=== PATIENT | female | born 1960 | race African-American/Black ===

== ENCOUNTER 2019-01-03 16:33 | Inpatient (IN) | payer OTHER ==
[~2019-01-03] VITALS: Ht 165.1 cm; Wt 70.8 kg
[2019-01-03 16:57] LABS: BASOPHILS % (AUTO) 0.6 % (0.0-2.0); EOSINOPHILS % (AUTO) 2.8 % (0.0-6.0); HEMATOCRIT 34 % (33-45); HEMOGLOBIN 11.2 g/dL (11.5-14.8); LYMPHOCYTES # (AUTO) 1.7 /CMM (0.8-4.8); LYMPHOCYTES % (AUTO) 28.4 % (20.0-44.0); MEAN CORPUSCULAR HGB CONC 33 g/dl (31.0-36.0); MEAN CORPUSCULAR VOLUME 96 fL (82-100); MONOCYTES # (AUTO) 0.5 /CMM (0.1-1.30); MONOCYTES % (AUTO) 8.4 % (2.0-12.0); NEUTROPHILS # (AUTO) 3.6 /CMM (1.8-8.9); NEUTROPHILS % (AUTO) 59.8 % (43.0-81.0); PLATELET COUNT (AUTO) 144 /CMM (150-450); RED BLOOD CELL COUNT(AUTO) 3.53 MIL/uL (4.0-5.2); WHITE BLOOD COUNT (AUTO) 5.9 K/uL (4.3-11.0)
[2019-01-03] MEDS ORDERED: LOSA100T31 PO (17:00)
[2019-01-03] MEDS ORDERED: MELO-105 PO (17:00)
[2019-01-03] MEDS ORDERED: PARI1CAP PO (17:00)
[2019-01-03] MEDS ORDERED: [UNRECOGNIZED DRUG - CODE] IJ (17:00)
[2019-01-03] MEDS ORDERED: CALC667T2 PO (17:00)
[2019-01-03] MEDS ORDERED: LABE300T2 PO (17:00)
[2019-01-03] MEDS ORDERED: CLON0.3T PO (17:00)
[2019-01-03] MEDS ORDERED: AMIN960L9 PO (17:00)
[2019-01-03] MEDS ORDERED: FOLI1CAP7 PO (17:00)
[2019-01-03] MEDS ORDERED: CINA30TA2 PO (17:00)
[2019-01-03] MEDS ORDERED: ROPI0.255 PO (17:00)
[2019-01-03] MEDS ORDERED: LEVE1000 PO (17:00)
[2019-01-03] MEDS ORDERED: DIPH50CA37 PO (17:00)
[2019-01-03] MEDS ORDERED: DOCU-141 PO (17:00)
[2019-01-03] MEDS ORDERED: CHOL100040 PO (17:00)
[2019-01-03] MEDS ORDERED: NIFE90TA2 PO (17:00)
[2019-01-03 17:06] LABS: CALCIUM, SERUM 8.9 mg/dL (8.5-10.1); CARBON DIOXIDE 30 mmol/L (21-32); CHLORIDE 94 mmol/L (98-107); CREATININE 3.7 mg/dL (0.6-1.3); GLUCOSE 106 mg/dL (74-106); POTASSIUM 3.1 mmol/L (3.5-5.1); SODIUM SERUM 134 mmol/L (136-145); UREA NITROGEN, BLOOD 21 mg/dL (7-18)
[2019-01-03] MEDS ORDERED: MAG HYDROX/AL HYDROX/SIMETH 30 ML UDC PO PRN (19:00)
[2019-01-03] MEDS ORDERED: ZOLPIDEM TARTRATE 5 MG TABLET PO PRN (19:00)
[2019-01-03] MEDS ORDERED: ONDANSETRON HCL/PF 4 MG/2 ML VIAL IVP PRN (19:00)
[2019-01-03] MEDS ORDERED: CLONIDINE HCL 0.1 MG TABLET PO PRN ×2 (19:00)
[2019-01-03] MEDS ORDERED: NITROGLYCERIN 0.4 MG/TAB BOTTLE SL PRN (19:00)
[2019-01-03] MEDS ORDERED: MAGNESIUM HYDROXIDE 30 ML UDC PO PRN (19:00)
[2019-01-03] MEDS ORDERED: HYDROCODONE/APAP 5/325MG 1 EACH TABLET PO PRN (19:00)
[2019-01-03] MEDS ORDERED: ACETAMINOPHEN 325 MG TABLET PO PRN (19:00)
[2019-01-03] MEDS ORDERED: PARICALCITOL 2 MCG PO SCH (19:00)
[2019-01-03] MEDS ORDERED: MORPHINE SULFATE INJ 2 MG/ML DISP.SYRIN IV PRN (19:00)
[2019-01-03 19:21] LABS: APPEARANCE,URINE Clear (CLEAR); BILIRUBIN,URINE Negative (NEGATIVE); BLOOD, URINE Trace-intact Ery/uL (NEGATIVE); COLOR,URINE Yellow (YELLOW); KETONES,URINE Negative (NEGATIVE); LEUKOCYTE ESTERASE ,URINE Small (NEGATIVE); NITRITE, URINE Negative (NEGATIVE); PH,URINE 7.5 (5.0-8.0); PROTEIN,URINE 100 mg/dl (NEGATIVE); UGLUCOSE Negative (NEGATIVE); UROBILINOGEN,URINE 0.2 EU/dL (0.2)
[2019-01-03] MEDS ORDERED: POTASSIUM CHLORIDE 20 MEQ TAB.PRT.SR PO ONE (19:30)
[2019-01-03 19:35] LABS: BACTERIA,URINE Few /HPF (None Seen); SQUAMOUS EPITHELIAL CELL,UR Few /HPF (None Seen)
[2019-01-03] MEDS: CHOLECALCIFEROL 1,000 UNIT TABLET (VIT D3) PO SCH (21:05)
[2019-01-03] MEDS: diphenhydrAMINE HCL 50 MG CAPSULE PO PRN (21:36)
[2019-01-03] MEDS ORDERED: LORAZEPAM INJ 2 MG/ML VIAL ONE (22:12)
[2019-01-03] MEDS ORDERED: LORAZEPAM INJ 2 MG/ML VIAL IV ONE (22:30)
[2019-01-04] VITALS: BP 163/79
[2019-01-04 04:00] VITALS: BP 160/90
[2019-01-04 06:42] LABS: BASOPHILS % (AUTO) 0.5 % (0.0-2.0); EOSINOPHILS % (AUTO) 4.2 % (0.0-6.0); HEMATOCRIT 34 % (33-45); HEMOGLOBIN 11.3 g/dL (11.5-14.8); LYMPHOCYTES # (AUTO) 1.6 /CMM (0.8-4.8); LYMPHOCYTES % (AUTO) 41.3 % (20.0-44.0); MEAN CORPUSCULAR HGB CONC 33 g/dl (31.0-36.0); MEAN CORPUSCULAR VOLUME 95 fL (82-100); MONOCYTES # (AUTO) 0.4 /CMM (0.1-1.30); MONOCYTES % (AUTO) 10.9 % (2.0-12.0); NEUTROPHILS # (AUTO) 1.7 /CMM (1.8-8.9); NEUTROPHILS % (AUTO) 43.1 % (43.0-81.0); PLATELET COUNT (AUTO) 131 /CMM (150-450); RED BLOOD CELL COUNT(AUTO) 3.57 MIL/uL (4.0-5.2); WHITE BLOOD COUNT (AUTO) 3.9 K/uL (4.3-11.0)
[2019-01-04 06:55] LABS: ALBUMIN 3.4 g/dL (3.4-5.0); BILIRUBIN,TOTAL 0.4 mg/dL (0.2-1.0); CALCIUM, SERUM 8.7 mg/dL (8.5-10.1); CREATININE 5.1 mg/dL (0.6-1.3); MAGNESIUM 2.1 mg/dL (1.8-2.4); PHOSPHORUS 5.4 mg/dL (2.5-4.9); POTASSIUM 4.1 mmol/L (3.5-5.1); TOTAL PROTEIN, SERUM 7.4 g/dL (6.4-8.2)
[2019-01-04 07:13] LABS: THYROID STIMULATING HORMONE 3.262 uIU/mL (0.358-3.74)
[2019-01-04 08:00] VITALS: BP 145/83
[2019-01-04] MEDS ORDERED: ASPIRIN 81 MG TAB.CHEW PO SCH (09:00)
[2019-01-04] MEDS ORDERED: LORAZEPAM 1 MG TABLET PO PRN (09:00)
[2019-01-04] MEDS ORDERED: NIFEdipine (10MG) 10 MG CAPSULE PO SCH (09:00)
[2019-01-04] MEDS: diphenhydrAMINE HCL 50 MG CAPSULE PO PRN ×2 (09:23→20:04)
[2019-01-04] MEDS: ropiniROLE 0.5 MG TABLET PO SCH (09:23)
[2019-01-04] MEDS: CINACALCET HCL 30 MG TABLET PO SCH (09:24)
[2019-01-04] MEDS: CALCIUM ACETATE 667 MG TABLET PO SCH ×3 (09:24→17:00)
[2019-01-04] MEDS: LEVETIRACETAM (250 MG) 250 MG TABLET PO SCH (09:26)
[2019-01-04] MEDS: LOSARTAN POTASSIUM 50 MG TABLET PO SCH (09:26)
[2019-01-04] MEDS: VIT B CMPLX 3/FA/VIT C/BIOTIN 1 TAB TABLET PO SCH (09:26)
[2019-01-04] MEDS: DOCUSATE SODIUM 100 MG CAPSULE PO SCH (09:26)
[2019-01-04] MEDS: LABETALOL HCL (100MG) 100 MG TABLET PO SCH ×3 (09:27→17:00)
[2019-01-04] MEDS: NICOTINE PATCH (14MG) 14 MG PATCH.TD24 TD SCH (09:27)
[2019-01-04] MEDS: CHOLECALCIFEROL 1,000 UNIT TABLET (VIT D3) PO SCH (09:27)
[2019-01-04] MEDS: MELOXICAM 7.5 MG TABLET PO SCH (09:28)
[2019-01-04] MEDS: NIFEdipine XL (30MG) 30 MG TAB PO SCH ×2 (09:28→17:00)
[2019-01-04] MEDS: PANTOPRAZOLE 40 MG TABLET.DR PO SCH (09:30)
[2019-01-04] MEDS ORDERED: IV NS 0.9% 250 ML IV ONE (11:10)
[2019-01-04] MEDS ORDERED: IOHEXOL-350 100 ML VIAL IV ONE ×2 (11:10→11:56)
[2019-01-04] MEDS ORDERED: CT SWABBABLE VALVE TRANS SET 1 EA INFUS.SET MC ONE (11:10)
[2019-01-04] MEDS ORDERED: METOPROLOL TARTRATE INJ 5 MG/5 ML AMPUL ONE (11:22)
[2019-01-04] MEDS: METOPROLOL TARTRATE INJ 5 MG/5 ML AMPUL IVP PRN ×3 (11:28→11:38)
[2019-01-04] MEDS ORDERED: NITROGLYCERIN 0.4 MG/TAB BOTTLE SL ONE ×2 (11:30→12:30)
[2019-01-04 16:00] VITALS: BP 105/61
[2019-01-04 20:00] VITALS: BP 106/76
[2019-01-05 06:30] LABS: BASOPHILS % (AUTO) 0.5 % (0.0-2.0); EOSINOPHILS % (AUTO) 3.6 % (0.0-6.0); HEMATOCRIT 34 % (33-45); HEMOGLOBIN 11.2 g/dL (11.5-14.8); LYMPHOCYTES # (AUTO) 1.2 /CMM (0.8-4.8); LYMPHOCYTES % (AUTO) 25.8 % (20.0-44.0); MEAN CORPUSCULAR HGB CONC 33 g/dl (31.0-36.0); MEAN CORPUSCULAR VOLUME 96 fL (82-100); MONOCYTES # (AUTO) 0.4 /CMM (0.1-1.30); MONOCYTES % (AUTO) 9.1 % (2.0-12.0); NEUTROPHILS # (AUTO) 2.9 /CMM (1.8-8.9); PLATELET COUNT (AUTO) 137 /CMM (150-450); RED BLOOD CELL COUNT(AUTO) 3.52 MIL/uL (4.0-5.2); WHITE BLOOD COUNT (AUTO) 4.8 K/uL (4.3-11.0)
[2019-01-05 06:56] LABS: CALCIUM, SERUM 7.9 mg/dL (8.5-10.1); CREATININE 4.9 mg/dL (0.6-1.3); MAGNESIUM 2.1 mg/dL (1.8-2.4); PHOSPHORUS 5.5 mg/dL (2.5-4.9); POTASSIUM 4.7 mmol/L (3.5-5.1)
[2019-01-05 08:00] VITALS: BP 128/68
[2019-01-05] MEDS: DOCUSATE SODIUM 100 MG CAPSULE PO SCH (08:43)
[2019-01-05] MEDS: PANTOPRAZOLE 40 MG TABLET.DR PO SCH (08:43)
[2019-01-05] MEDS: LEVETIRACETAM (250 MG) 250 MG TABLET PO SCH (08:44)
[2019-01-05] MEDS: CINACALCET HCL 30 MG TABLET PO SCH (08:45)
[2019-01-05] MEDS: VIT B CMPLX 3/FA/VIT C/BIOTIN 1 TAB TABLET PO SCH (08:46)
[2019-01-05] MEDS: CALCIUM ACETATE 667 MG TABLET PO SCH ×3 (08:46→17:37)
[2019-01-05] MEDS: ropiniROLE 0.5 MG TABLET PO SCH (08:46)
[2019-01-05] MEDS: CHOLECALCIFEROL 1,000 UNIT TABLET (VIT D3) PO SCH (08:47)
[2019-01-05] MEDS: LABETALOL HCL (100MG) 100 MG TABLET PO SCH ×3 (08:50→17:38)
[2019-01-05] MEDS: NIFEdipine XL (30MG) 30 MG TAB PO SCH ×2 (08:51→17:38)
[2019-01-05] MEDS: MELOXICAM 7.5 MG TABLET PO SCH (08:55)
[2019-01-05] MEDS: NICOTINE PATCH (14MG) 14 MG PATCH.TD24 TD SCH (08:58)
[2019-01-05] MEDS: LOSARTAN POTASSIUM 50 MG TABLET PO SCH (10:25)
[2019-01-05 16:00] VITALS: BP_DIAS 83
[2019-01-05 20:00] VITALS: BP 160/82
[2019-01-05 21:51] VITALS: BP 131/43
[2019-01-05 21:53] VITALS: BP 160/82
[2019-01-06 07:03] LABS: BASOPHILS % (AUTO) 0.4 % (0.0-2.0); EOSINOPHILS % (AUTO) 4.6 % (0.0-6.0); HEMATOCRIT 37 % (33-45); HEMOGLOBIN 11.9 g/dL (11.5-14.8); LYMPHOCYTES # (AUTO) 1.3 /CMM (0.8-4.8); LYMPHOCYTES % (AUTO) 26.3 % (20.0-44.0); MEAN CORPUSCULAR HGB CONC 33 g/dl (31.0-36.0); MEAN CORPUSCULAR VOLUME 97 fL (82-100); MONOCYTES # (AUTO) 0.4 /CMM (0.1-1.30); MONOCYTES % (AUTO) 8.5 % (2.0-12.0); NEUTROPHILS # (AUTO) 3.1 /CMM (1.8-8.9); NEUTROPHILS % (AUTO) 60.2 % (43.0-81.0); PLATELET COUNT (AUTO) 128 /CMM (150-450); RED BLOOD CELL COUNT(AUTO) 3.78 MIL/uL (4.0-5.2); WHITE BLOOD COUNT (AUTO) 5.1 K/uL (4.3-11.0)
[2019-01-06 07:23] LABS: CALCIUM, SERUM 8.8 mg/dL (8.5-10.1); CREATININE 4.8 mg/dL (0.6-1.3); PHOSPHORUS 3.9 mg/dL (2.5-4.9); POTASSIUM 4.2 mmol/L (3.5-5.1)
[2019-01-06] MEDS: PANTOPRAZOLE 40 MG TABLET.DR PO SCH (07:58)
[2019-01-06 08:00] VITALS: BP 143/74
[2019-01-06] MEDS: LABETALOL HCL (100MG) 100 MG TABLET PO SCH (08:38)
[2019-01-06] MEDS: LOSARTAN POTASSIUM 50 MG TABLET PO SCH (08:38)
[2019-01-06] MEDS: CHOLECALCIFEROL 1,000 UNIT TABLET (VIT D3) PO SCH (08:38)
[2019-01-06] MEDS: CINACALCET HCL 30 MG TABLET PO SCH (08:38)
[2019-01-06] MEDS: LEVETIRACETAM (250 MG) 250 MG TABLET PO SCH (08:39)
[2019-01-06] MEDS: VIT B CMPLX 3/FA/VIT C/BIOTIN 1 TAB TABLET PO SCH (08:39)
[2019-01-06] MEDS: CALCIUM ACETATE 667 MG TABLET PO SCH (08:39)
[2019-01-06] MEDS: DOCUSATE SODIUM 100 MG CAPSULE PO SCH (08:39)
[2019-01-06 08:43] VITALS: BP 143/74
[2019-01-06] MEDS: NIFEdipine XL (30MG) 30 MG TAB PO SCH (08:43)
[2019-01-06] MEDS: MELOXICAM 7.5 MG TABLET PO SCH (08:43)
[2019-01-06] MEDS: NICOTINE PATCH (14MG) 14 MG PATCH.TD24 TD SCH (08:43)
[2019-01-06] MEDS: ropiniROLE 0.5 MG TABLET PO SCH (08:44)
== END 2019-01-06 12:00 | disposition home or self-care (01) | DRG 198 ==
LOC: ER 16:36 → TELE 18:28 → MED 01-04 10:17
PROVIDERS: ADMIT Nurse Practitioner Acute Care; ATTEND Nurse Practitioner Acute Care
PROC: 5A1D70Z Performance of Urinary Filtration, Intermittent, Less than 6 Hours Per Day (ICD-10-PCS; principal; 2019-01-04)
DX: I25.10 Atherosclerotic heart disease of native coronary artery without angina pectoris (principal); D68.59 Other primary thrombophilia; I12.0 Hypertensive chronic kidney disease with stage 5 chronic kidney disease or end stage renal disease; D69.6 Thrombocytopenia, unspecified; E87.1 Hypo-osmolality and hyponatremia; N18.6 End stage renal disease; G40.909 Epilepsy, unspecified, not intractable, without status epilepticus; E87.6 Hypokalemia; Z99.2 Dependence on renal dialysis; D64.9 Anemia, unspecified; M12.9 Arthropathy, unspecified; Z88.8 Allergy status to other drugs, medicaments and biological substances; Z79.899 Other long term (current) drug therapy; F19.10 Other psychoactive substance abuse, uncomplicated; Z74.09 Other reduced mobility
CPT/HCPCS: 36415; 71045-TC; 75574; 80048-TC; 80053-TC; 80061-TC; 80305; 81000-TC; 83735-TC; 84100-TC; 84443-TC; 84484-TC; 85025-TC; 85610-TC; 86706; 87081-TC; 87086-TC; 87340; 90935-TC; G0378; J2060; J2270; J3490; J7050; Q0163; Q9967

== ENCOUNTER 2019-08-22 18:09 | Emergency (ER) | payer OTHER ==
[~2019-08-22] VITALS: Ht 167.6 cm; Wt 63.5 kg
[~2019-08-22 18:09] MED LIST: AMIN960L9 PO; CALC667T2 PO; CHOL100040 PO; CINA30TA2 PO; CLON0.3T PO; DIPH50CA37 PO; DOCU-141 PO; FOLI1CAP7 PO; LABE300T2 PO; LEVE1000 PO; LOSA100T31 PO; MELO-105 PO; NIFE90TA2 PO; PARI1CAP PO; ROPI0.255 PO; [UNRECOGNIZED DRUG - CODE] IJ
--- NOTE | 2019-08-22 18:20 | NUR ---
[email or web address] from dialysis center for noted seizure. versed 5mg im given architectural project captain, bg 98 architectural project captain. Patient a/ox1, still post ictal, responsive to tactile stimuli. Attached to the air sampling and monitoring. No distress noted.
[2019-08-22] MEDS ORDERED: LEVETIRACETAM (500MG) 500 MG in IV NS 0.9% 100 ML IV ONE (18:30)
[2019-08-22 18:41] LABS: BASOPHILS % (AUTO) 0.6 % (0.0-2.0); EOSINOPHILS % (AUTO) 3.7 % (0.0-6.0); HEMATOCRIT 30 % (33-45); HEMOGLOBIN 9.9 g/dL (11.5-14.8); LYMPHOCYTES % (AUTO) 31.8 % (20.0-44.0); MEAN CORPUSCULAR HGB CONC 33 g/dl (31.0-36.0); MEAN CORPUSCULAR VOLUME 98 fL (82-100); MONOCYTES # (AUTO) 0.3 /CMM (0.1-1.30); MONOCYTES % (AUTO) 9.1 % (2.0-12.0); NEUTROPHILS # (AUTO) 1.8 /CMM (1.8-8.9); NEUTROPHILS % (AUTO) 54.8 % (43.0-81.0); PLATELET COUNT (AUTO) 109 /CMM (150-450); RED BLOOD CELL COUNT(AUTO) 3.01 MIL/uL (4.0-5.2); WHITE BLOOD COUNT (AUTO) 3.2 K/uL (4.3-11.0)
--- NOTE | 2019-08-22 18:45 | NUR ---
Iv line established on left ac g20, blood drawn and sent to lab.
[2019-08-22 18:49] LABS: CALCIUM, SERUM 8.5 mg/dL (8.5-10.1); CREATININE 4.7 mg/dL (0.6-1.3); POTASSIUM 3.6 mmol/L (3.5-5.1)
[2019-08-22 18:55] LABS: ALBUMIN 3.3 g/dL (3.4-5.0); BILIRUBIN,DIRECT 0.1 mg/dL (0.0-0.2); BILIRUBIN,TOTAL 0.3 mg/dL (0.2-1.0); TOTAL PROTEIN, SERUM 6.7 g/dL (6.4-8.2)
--- NOTE | 2019-08-22 18:55 | NUR ---
taken to ct.
--- NOTE | 2019-08-22 19:20 | NUR ---
ENDORSED TO CORNEL WALTER
--- NOTE | 2019-08-22 19:27 | NUR ---
pt remains in gurney, lethargic, opens eyes to name call, vitals stable
[2019-08-22 21:06] VITALS: BP 132/73
--- NOTE | 2019-08-22 21:06 | NUR ---
Patient discharged to home in stable condition. Written and verbal after care instructions given. Patient verbalizes understanding of instruction.
== END 2019-08-22 22:48 | disposition home or self-care (01) ==
LOC: ER 18:13
DX: G40.909 Epilepsy, unspecified, not intractable, without status epilepticus (principal); I25.10 Atherosclerotic heart disease of native coronary artery without angina pectoris; I12.0 Hypertensive chronic kidney disease with stage 5 chronic kidney disease or end stage renal disease; N18.6 End stage renal disease; Z99.2 Dependence on renal dialysis; Z88.6 Allergy status to analgesic agent; Z60.2 Problems related to living alone; Z79.899 Other long term (current) drug therapy
CPT/HCPCS: 36415; 70450; 80048; 80076; 85025; 96365; 99284; J1953; J7030

== ENCOUNTER 2019-10-31 18:42 | Inpatient (IN) | payer OTHER ==
[~2019-10-31] VITALS: Ht 160 cm; Wt 61.7 kg
[2019-10-31] MEDS ORDERED: NITROGLYCERIN 0.4 MG/TAB BOTTLE SL ONE (19:00)
[2019-10-31 19:07] LABS: BASOPHILS % (AUTO) 0.5 % (0.0-2.0); EOSINOPHILS % (AUTO) 2.3 % (0.0-6.0); HEMATOCRIT 30 % (33-45); LYMPHOCYTES # (AUTO) 1.3 /CMM (0.8-4.8); LYMPHOCYTES % (AUTO) 22.8 % (20.0-44.0); MEAN CORPUSCULAR HGB CONC 33 g/dl (31.0-36.0); MEAN CORPUSCULAR VOLUME 99 fL (82-100); MONOCYTES # (AUTO) 0.4 /CMM (0.1-1.30); MONOCYTES % (AUTO) 7.5 % (2.0-12.0); NEUTROPHILS # (AUTO) 3.8 /CMM (1.8-8.9); NEUTROPHILS % (AUTO) 66.9 % (43.0-81.0); PLATELET COUNT (AUTO) 169 /CMM (150-450); RED BLOOD CELL COUNT(AUTO) 3.08 MIL/uL (4.0-5.2); WHITE BLOOD COUNT (AUTO) 5.8 K/uL (4.3-11.0)
--- NOTE | 2019-10-31 19:09 | NUR ---
ANIBAL FROM HD CENTER TO ER BED 7. AAOX4. NOT IN RESP DISTRESS, BRAETHING EVEN AND UNLABORED. AMBULATORY W/ ASSIST, BASELINE FWW USER. BROUGHT IN FOR C/O MID STERNAL CHEST PAIN STARTED AFTER HAVING HD. PT RATED HER PAIN 10/10 WHEN IT STARTED, EMS GAVE HER 2 SPRAY OF NITRO VERIFICATION LEAD AND BROUGHT DOWN THE PAIN TO 6/10. PT IS PLACED ON MONITOR. MD WAS AT THE BEDSIDE FOR EVAL. ORDERS RECEIVED NOTED AND CARRIED OUT.
[2019-10-31 19:15] LABS: CALCIUM, SERUM 9.6 mg/dL (8.5-10.1); POTASSIUM 3.2 mmol/L (3.5-5.1)
[2019-10-31] MEDS ORDERED: NITROGLYCERIN 0.4 MG/TAB BOTTLE ONE (19:15)
--- NOTE | 2019-10-31 19:27 | NUR ---
2ND DOSE NITROSTAT 0.4MG SL GIVEN. PAINIS RATE 07/21 BP: 154/91 HR: 77
--- NOTE | 2019-10-31 19:40 | NUR ---
pt provided with food
--- NOTE | 2019-10-31 20:38 | NUR ---
COVID SWAB COLLECTED AND SENT TO LAB
--- NOTE | 2019-10-31 20:57 | NUR ---
CALLED [facility], PAGED NORIS
--- NOTE | 2019-10-31 21:47 | NUR ---
REPORT GIVEN TO NICK
[2019-10-31 21:50] VITALS: BP 146/92
--- NOTE | 2019-10-31 21:56 | NUR ---
pt transported to unit on [facility] with emt and rn at bedside w/ acls protocol. nad noted during transport. pt ambulated from rney to bed with min assist.
[2019-10-31 22:00] VITALS: BP_SYST 143; BP_SYST 146; BP_DIAS 88; BP_DIAS 92
[2019-10-31] MEDS ORDERED: PARICALCITOL 2 MCG PO SCH (22:00)
[2019-10-31] MEDS ORDERED: ZOLPIDEM TARTRATE 5 MG TABLET PO PRN (22:00)
[2019-10-31] MEDS ORDERED: ONDANSETRON HCL/PF 4 MG/2 ML VIAL IVP PRN (22:00)
[2019-10-31] MEDS ORDERED: [UNRECOGNIZED DRUG - OTHER] IJ SCH (22:00)
[2019-10-31] MEDS ORDERED: MAGNESIUM HYDROXIDE 30 ML UDC PO PRN (22:00)
[2019-10-31] MEDS ORDERED: Z GUARD REMEDY 2 OZ OINT TP PRN (22:00)
[2019-10-31] MEDS ORDERED: ACETAMINOPHEN 325 MG TABLET PO PRN (22:00)
[2019-10-31] MEDS ORDERED: CLONIDINE HCL 0.1 MG TABLET PO PRN (22:00)
[2019-10-31] MEDS ORDERED: MAG HYDROX/AL HYDROX/SIMETH 30 ML UDC PO PRN (22:00)
[2019-10-31] MEDS: HYDROCODONE/APAP 5/325MG TABLET PO PRN (22:27)
[2019-10-31] MEDS ORDERED: POTASSIUM CHLORIDE 20 MEQ TAB.PRT.SR PO ONE (22:30)
[2019-11-01] VITALS (7 sets, daily range): BP systolic 111–146; BP diastolic 61–92
--- NOTE | 2019-11-01 01:44 | NUR ---
RN notes Admitted a 59 year old female from ER via stretcher with diagnosis of chest pain, troponin slightly elevated 0.068. On room air well tolerated with 02sat of 99 -100%. Complaining of leg cramps and pain, seen and examined by Dr. Quinteros. [place] given with slight relief. Hot packs provided with help. Vital signs wnl. No complaint of chest pain as of this time. Needs attended. Kept clean and dry. Will continue to monitor.
--- NOTE | 2019-11-01 06:41 | NUR ---
RN notes Spoke with Dr. Quinteros regarding DVT pump or Chemical prophylaxis for the patient. No to DVT pump for now as patient is complaining of severe cramps and waiting for Dr. Trevizo to see patient before ordering any chemical prophylaxis.
--- NOTE | 2019-11-01 07:30 | NUR ---
RN Opening Received patient in bed, AO x 3-4, able to responds all stimuli. C/O both feet cramping and provided warm pack applied, respiratory even, unlabored on room air. Skin is warm to touch, keep clean/dry, intact IV site. Keep bed in locked with elevated HOB and lower position of the bed for ensure airway, and aspiration precaution. Call light within reach, will continue to monitor.
[2019-11-01 08:20] LABS: BASOPHILS % (AUTO) 0.4 % (0.0-2.0); EOSINOPHILS % (AUTO) 3.3 % (0.0-6.0); HEMATOCRIT 32 % (33-45); HEMOGLOBIN 10.6 g/dL (11.5-14.8); LYMPHOCYTES # (AUTO) 1.1 /CMM (0.8-4.8); LYMPHOCYTES % (AUTO) 24.4 % (20.0-44.0); MEAN CORPUSCULAR HGB CONC 33 g/dl (31.0-36.0); MEAN CORPUSCULAR VOLUME 99 fL (82-100); MONOCYTES # (AUTO) 0.5 /CMM (0.1-1.30); MONOCYTES % (AUTO) 9.9 % (2.0-12.0); NEUTROPHILS # (AUTO) 2.9 /CMM (1.8-8.9); PLATELET COUNT (AUTO) 171 /CMM (150-450); RED BLOOD CELL COUNT(AUTO) 3.25 MIL/uL (4.0-5.2); WHITE BLOOD COUNT (AUTO) 4.7 K/uL (4.3-11.0)
[2019-11-01 08:30] LABS: CALCIUM, SERUM 9.6 mg/dL (8.5-10.1); CREATININE 6.7 mg/dL (0.6-1.3); MAGNESIUM 2.4 mg/dL (1.8-2.4); PHOSPHORUS 6.1 mg/dL (2.5-4.9); POTASSIUM 4.7 mmol/L (3.5-5.1)
[2019-11-01] MEDS: CINACALCET HCL 30 MG TABLET PO SCH (08:44)
[2019-11-01] MEDS: CALCIUM ACETATE 667 MG TABLET PO SCH ×3 (08:44→17:56)
[2019-11-01] MEDS: CHOLECALCIFEROL 1,000 UNIT TABLET (VIT D3) PO SCH (08:44)
[2019-11-01] MEDS: VIT B CMPLX 3/FA/VIT C/BIOTIN 1 TAB TABLET PO SCH (08:44)
[2019-11-01] MEDS: NIFEdipine XL (30MG) 30 MG TAB PO SCH ×2 (08:45→17:00)
[2019-11-01] MEDS: DOCUSATE SODIUM 100 MG CAPSULE PO SCH (08:45)
[2019-11-01] MEDS: LOSARTAN POTASSIUM 50 MG TABLET PO SCH (08:46)
[2019-11-01] MEDS: LEVETIRACETAM (250 MG) 250 MG TABLET PO SCH (08:46)
[2019-11-01] MEDS: ropiniROLE 0.5 MG TABLET PO SCH (08:47)
[2019-11-01] MEDS: MELOXICAM 7.5 MG TABLET PO SCH (08:47)
[2019-11-01] MEDS: HEPARIN SODIUM, PORCINE 5000 UNITS/1 ML VIAL SQ SCH ×2 (08:47→21:25)
[2019-11-01] MEDS ORDERED: PROSOURCE / PROSTAT (PYXIS) 30 ML UDC PO SCH (09:00)
[2019-11-01] MEDS ORDERED: LABETALOL HCL 300 MG TABLET PO SCH (09:00)
--- NOTE | 2019-11-01 09:00 | NUR ---
Obtained sign of consent for CTA.
--- NOTE | 2019-11-01 09:30 | NUR ---
Patient went to CTA unable to take Labetalol at this time.
[2019-11-01] MEDS: HYDROCODONE/APAP 5/325MG TABLET PO PRN ×2 (09:50→21:23)
[2019-11-01] MEDS ORDERED: IOHEXOL-350 100 ML VIAL IV ONE (09:58)
[2019-11-01] MEDS ORDERED: IV NS 0.9% 250 ML IV ONE (09:58)
--- NOTE | 2019-11-01 10:16 | NUR ---
Patient left to CTA accompanied by staff with w/c.
[2019-11-01] MEDS ORDERED: IV NS 0.9% 500 ML IV PRN (11:00)
[2019-11-01] MEDS ORDERED: METOPROLOL TARTRATE INJ 5 MG/5 ML AMPUL IVP ONE (11:00)
[2019-11-01] MEDS ORDERED: NITROGLYCERIN 4.9 GM SPRAY SL ONE (11:00)
[2019-11-01] MEDS ORDERED: IV NS 0.9% 500 ML IV SCH (11:00)
[2019-11-01] MEDS ORDERED: METOPROLOL TARTRATE INJ 5 MG/5 ML AMPUL ONE (11:49)
[2019-11-01] MEDS ORDERED: LABETALOL HCL (100MG) 100 MG TABLET PO SCH ×2 (13:00→13:08)
--- NOTE | 2019-11-01 13:20 | NUR ---
Patient obtained new IV site on left AC 18g, informed CT that pt is ready for CTA.
[2019-11-01] MEDS: LABETALOL HCL (100MG) 100 MG TABLET PO SCH ×2 (14:46→17:00)
--- NOTE | 2019-11-01 17:58 | NUR ---
Patient going have HD today, will hold bp meds at this time.
--- NOTE | 2019-11-01 18:53 | NUR ---
RN Closing note Patient in bed sleeping comfortably, does no appears pain or distress, respiratory even and unlabored on room air O2sat 98%. Skin is warm to touch kept clean/dry, intact new midline site. Patient still waiting CTA, called CT/ext [phone] but no one answer the phone. Keep bed in locked with elevated HOB for ensure airway and elevated HOB. Call light within reach, will endorse shift commander.
[2019-11-01] MEDS: ATORVASTATIN 10 MG TABLET PO SCH (21:23)
[2019-11-01] MEDS: diphenhydrAMINE HCL 50 MG CAPSULE PO PRN (22:58)
[2019-11-02 00:10] VITALS: BP 114/66
[2019-11-02] MEDS: HYDROCODONE/APAP 5/325MG TABLET PO PRN ×2 (02:44→21:14)
[2019-11-02 04:22] VITALS: BP 139/65
--- NOTE | 2019-11-02 06:41 | NUR ---
MARINE EQUIPMENT ENGINEER NOTES AWAKE & RESPONSIVE. NOT IN ANY DISTRESS. NO SOB NOTED. DENIES ANY PAIN OR DISCOMFORT AT THIS TIME. ON TELE SB @ 58 WITH IV-ML PATENT & INTACT. AM CARE DONE. MONITORED ACCORDINGLY. CALL LIGHT WITHIN REACH. BED IN LOWEST POSITION. SR UP X 3 WITH BED ALARM ON FOR SAFETY. WILL ENDORSE TO NEXT SHIFT.
--- NOTE | 2019-11-02 07:40 | NUR ---
RN Opening Received patient in bed, going have CTA this morning. Denies chest pain but c/o itchiness on left ear. Skin is warm to touch, keep clean.dry, intact midline and portacath. respiratory hellen and unlabored on room air, no distress observed. Transporter picked up patient to CTA, stable vital sign:bp-139/76, p-53, r-18, t-98.5, E3hvs-272%. Will continue to monitor.
[2019-11-02] MEDS ORDERED: METOPROLOL TARTRATE INJ 5 MG/5 ML AMPUL ONE (07:51)
[2019-11-02] MEDS ORDERED: NITROGLYCERIN 0.4 MG/TAB BOTTLE ONE (07:51)
[2019-11-02] MEDS ORDERED: IV NS 0.9% 250 ML IV ONE (07:52)
[2019-11-02] MEDS ORDERED: IOHEXOL-350 100 ML VIAL IV ONE (07:52)
[2019-11-02 08:00] VITALS: BP 139/76
[2019-11-02] MEDS ORDERED: IV NS 0.9% 500 ML IV PRN (08:00)
[2019-11-02] MEDS ORDERED: METOPROLOL TARTRATE INJ 5 MG/5 ML AMPUL IVP PRN (08:00)
[2019-11-02] MEDS ORDERED: NITROGLYCERIN 4.9 GM SPRAY SL PRN (08:00)
--- NOTE | 2019-11-02 08:08 | NUR ---
in for CTA heart, AOx4; no Metoprolol given, NTG 0.4 mg/SL given prior to CTA; CTA Heart completed, denies CP SOB ; VS stable at completion of test. Report given to JOSE ANGEL Luque
--- NOTE | 2019-11-02 08:30 | NUR ---
Patient montesinos from CTA, vital sign: bp-154/76, p-57, r-18, O2sat- 99%, t-98.6, in stable condition.
[2019-11-02] MEDS: CALCIUM ACETATE 667 MG TABLET PO SCH ×3 (08:54→17:28)
[2019-11-02] MEDS: CINACALCET HCL 30 MG TABLET PO SCH (08:54)
[2019-11-02] MEDS: ropiniROLE 0.5 MG TABLET PO SCH (08:54)
[2019-11-02] MEDS: CHOLECALCIFEROL 1,000 UNIT TABLET (VIT D3) PO SCH (08:54)
[2019-11-02] MEDS: DOCUSATE SODIUM 100 MG CAPSULE PO SCH (08:54)
[2019-11-02] MEDS: VIT B CMPLX 3/FA/VIT C/BIOTIN 1 TAB TABLET PO SCH (08:54)
[2019-11-02] MEDS: LEVETIRACETAM (250 MG) 250 MG TABLET PO SCH (08:55)
[2019-11-02] MEDS: HEPARIN SODIUM, PORCINE 5000 UNITS/1 ML VIAL SQ SCH ×2 (08:56→21:21)
[2019-11-02] MEDS: NIFEdipine XL (30MG) 30 MG TAB PO SCH ×2 (09:00→16:43)
[2019-11-02] MEDS: LABETALOL HCL (100MG) 100 MG TABLET PO SCH ×3 (09:00→16:44)
[2019-11-02] MEDS: MELOXICAM 7.5 MG TABLET PO SCH (09:03)
[2019-11-02] MEDS: LOSARTAN POTASSIUM 50 MG TABLET PO SCH (09:07)
[2019-11-02] MEDS: PROSOURCE / PROSTAT (PYXIS) 30 ML UDC PO SCH (09:13)
--- NOTE | 2019-11-02 09:20 | NUR ---
Patient going HD will hold BP meds, HR 57 at this time.
[2019-11-02] MEDS: diphenhydrAMINE HCL 50 MG CAPSULE PO PRN (14:04)
[2019-11-02] MEDS ORDERED: diphenhydrAMINE HCL 50 MG CAPSULE PO PRN (14:57)
[2019-11-02 16:00] VITALS: BP 148/77
--- NOTE | 2019-11-02 16:44 | NUR ---
Pt is on HD, will hold bp meds, HR 54.
--- NOTE | 2019-11-02 18:33 | NUR ---
RN Closing note Patient in bed, finished hemodialysis out put 1000 ml. Pt denies fatigue or distress after after HD, skin is warm to touch, keep clean/dry, intact mid line and portacath. Respiratory even and unlabored on room air. Keep bed in locked with elevated HOB for ensure airway and aspiration precaution. Call light within reach, will endorse car shifter. Unable to document out put on intervention
--- NOTE | 2019-11-02 19:16 | NUR ---
MS RN: RECEIVED PATIENT Patient in bed, awake. On room air, denies shortness of breath. Right chest Perma cath intact, had dialysis treatment today per JOSE ANGEL Rouse. Midline IDA intact. Report pain in her left ear, no swelling, no redness noted. Fall precaution maintained.
[2019-11-02 20:10] VITALS: BP 135/92
[2019-11-02 20:15] VITALS: BP 135/92
--- NOTE | 2019-11-02 20:42 | NUR ---
AGITATION Patient sitting up in bed, due meds Heparin injection and Lipitor present to patient, explaining indication and possible side effect to patient, suddenly became agitated. Pacing inside the room and scream to nurse. States she wants to leave hosp. Educate patient the importance of staying in the hosp risk and benefit of leaving against medical advice, patient declined education. Yells out to nurse to leave her alone. Informed MaryRN/Charge nurse. Called sun Rascon. Appreciate the call, per sun Rascon patient has periodic attitude at home. Patient "walked out" too from other hosp per daughterTarah. Will monitor.
[2019-11-02] MEDS: ATORVASTATIN 10 MG TABLET PO SCH (21:13)
--- NOTE | 2019-11-02 21:24 | NUR ---
BEHAVIOR Received phone call from patient's daughter,Tarah, who spoke to patient and calm her down. Due medication given, patient apologized to nurse of her behavior. Patient reports body itching, given PRN Benadryl. PRN [place] for lower back pain. Will reassess. No s/s of bleeding, Heparin injection given, co-singed with JOSE ANGEL Cuello.
--- NOTE | 2019-11-03 06:22 | NUR ---
MS RN: END OF SHIFT REPORT Patient is A/O x4. Denies chest pain, Oxygen sat 97% on room air, no c/o shortness of breath. Lower back pain managed with PRN Bryan. MRSA nares, on Bactroban ointment. Plan for Vascular surgery eval. Will endorse to oncoming RN.
--- NOTE | 2019-11-03 07:03 | NUR ---
MS RN OPENING NOTE RECEIVED PT RESTING IN BED AT THIS TIME. A/O X 4, NO SOB NOTED, NO S/S OF ANY ACUTE DISTRESS NOTED. NO C/O PAIN AT THIS TIME. RESPIRATIONS ARE EVEN AND UNLABORED WITH EQUAL RISE AND FALL IN CHEST. PT ABLE TO MAKE NEEDS KNOWN. IDA MIDLINE NOTED, IV ACCESS NOTED IN LAC G# 22, BOTH PATENT, INTACT AND FLUSHING WELL. RIGHT ARM PERMA CATH NOTED. ASPIRATION AND SAFETY PRECAUTION IN PLACE. BED IN LOWEST LOCKED POSITION, HOB ELEVATED, RAILS UP X 2, CALL LIGHT WITHIN REACH. WILL CONTINUE TO MONITOR
[2019-11-03 08:00] VITALS: BP 167/92
[2019-11-03] MEDS: CALCIUM ACETATE 667 MG TABLET PO SCH ×3 (08:37→17:05)
[2019-11-03] MEDS ORDERED: MUPIROCIN OINT 2% 22 GM TUBE NS SCH (09:00)
[2019-11-03] MEDS: MELOXICAM 7.5 MG TABLET PO SCH (09:26)
[2019-11-03] MEDS: ropiniROLE 0.5 MG TABLET PO SCH (09:26)
[2019-11-03] MEDS: CHOLECALCIFEROL 1,000 UNIT TABLET (VIT D3) PO SCH (09:26)
[2019-11-03] MEDS: CINACALCET HCL 30 MG TABLET PO SCH (09:26)
[2019-11-03] MEDS: DOCUSATE SODIUM 100 MG CAPSULE PO SCH (09:27)
[2019-11-03] MEDS: LEVETIRACETAM (250 MG) 250 MG TABLET PO SCH (09:27)
[2019-11-03] MEDS: VIT B CMPLX 3/FA/VIT C/BIOTIN 1 TAB TABLET PO SCH (09:27)
[2019-11-03] MEDS: NIFEdipine XL (30MG) 30 MG TAB PO SCH ×2 (09:28→17:05)
[2019-11-03] MEDS: LOSARTAN POTASSIUM 50 MG TABLET PO SCH (09:28)
[2019-11-03] MEDS: PROSOURCE / PROSTAT (PYXIS) 30 ML UDC PO SCH (09:28)
[2019-11-03] MEDS: LABETALOL HCL (100MG) 100 MG TABLET PO SCH ×3 (09:29→17:04)
[2019-11-03] MEDS: HEPARIN SODIUM, PORCINE 5000 UNITS/1 ML VIAL SQ SCH (09:31)
[2019-11-03] MEDS ORDERED: OFLOXACIN OTIC SOLN 5 ML BOTTLE LEFT EAR SCH (15:00)
--- NOTE | 2019-11-03 15:00 | NUR ---
PT'S DAUGHTER NEERU, REQUESTED FOR CASE MANAGEMENT TO ARRANGE TRANSPORTATION THAT WILL DROP PT HOME. TL, CHARGE NURSE MADE AWARE. SIMONA PHILIP MADE ARRANGEMENTS WITH [facility] ([phone]) [employer] LIFE WITH TRIP # [id number]. WILL F/U PLAN OF CARE AND CONTINUE TO MONITOR
[2019-11-03] MEDS ORDERED: OFLOXACIN LEFT EAR (16:06)
[2019-11-03] MEDS ORDERED: ATOR10TA PO (16:06)
[2019-11-03 17:05] VITALS: BP 141/80
--- NOTE | 2019-11-03 17:15 | NUR ---
MS ENDOSCOPIC TECHNICIAN NOTES PT DISCHARGED TO HOME AT THIS TIME. PT IN STABLE CONDITION, ALL NEEDS, CARE, MEDICATIONS AND TREATMENT ADMINISTERED ANTICIPATED PER ORDER. PT DISCHARGE INSTRUCTIONS PROVIDED. PT VERBALIZE UNDERSTANDING. IV ACCESS IN LFA AND IDA MIDLINE REMOVED, PRESSURE APPLIED, SECURE WITH GAUZE AND TAPE. NO BLEEDING OR INFILTRATION NOTED. BELONGINGS ACCOUNTED FOR, SIGNED BY PATIENT AND FILED IN CHART. PATIENTS HOME MEDICATIONS PICKED UP FROM PHARMACY AND RETURNED TO PT. PT TRANSPORTED TO [facility] BY NURSE. PT PICKED UP IN PRIVATE IN [facility] WITH PLATE NUMBER ENDING IN [phone] BY LOULOU FRANCOIS.
== END 2019-11-03 17:15 | disposition home or self-care (01) | DRG 190 ==
LOC: ER 18:43 → TELE 21:14 → MED 11-02 12:08
PROVIDERS: ADMIT Family Medicine; ATTEND Nurse Practitioner Acute Care
DX: I21.A1 Myocardial infarction type 2 (principal); I12.0 Hypertensive chronic kidney disease with stage 5 chronic kidney disease or end stage renal disease; N18.6 End stage renal disease; Z99.2 Dependence on renal dialysis; I25.10 Atherosclerotic heart disease of native coronary artery without angina pectoris; E87.6 Hypokalemia; E87.1 Hypo-osmolality and hyponatremia; E78.5 Hyperlipidemia, unspecified; D63.8 Anemia in other chronic diseases classified elsewhere; F17.210 Nicotine dependence, cigarettes, uncomplicated; G40.909 Epilepsy, unspecified, not intractable, without status epilepticus; M19.90 Unspecified osteoarthritis, unspecified site; N25.0 Renal osteodystrophy; H72.92 Unspecified perforation of tympanic membrane, left ear; H91.92 Unspecified hearing loss, left ear; I70.201 Unspecified atherosclerosis of native arteries of extremities, right leg; Z82.49 Family history of ischemic heart disease and other diseases of the circulatory system
CPT/HCPCS: 36415; 71045-TC; 75574; 80048-TC; 80061-TC; 80305; 83735-TC; 84100-TC; 84484-TC; 85025-TC; 86705; 86706; 86803; 87081-TC; 90935-TC; 93307-TC; C9803-CS; G0378; J1644; J3490; J7050; Q0163; Q9967

== ENCOUNTER 2021-02-09 09:43 | Inpatient (IN) | payer OTHER ==
[~2021-02-09] VITALS: Ht 152.4 cm; Wt 47.2 kg
[~2021-02-09 09:43] MED LIST changes: +ATOR10TA PO; +OFLOXACIN LEFT EAR
--- NOTE | 2021-02-09 09:45 | NUR ---
PT BIB RA FROM DIALYSIS CENTER,UNABLE TO GIVE TREATMENT DUE TO AMS,BLOOD GLUCSE WAS "LOW" PER EMS,GLUCAGON WAS GIVEN DIRECTOR OF INSTITUTIONAL RESEARCH. PT A/OX1. SCABS AND DICOLORATION NOTED TO BUE. TOLERATING R/A WELL AT 95% WITHOUT SOB. CONNECTED PT TO POX AND TELE MONITOR.
[2021-02-09] MEDS ORDERED: DEXTROSE 50%-WATER 50 ML DISP.SYRIN ONE (09:57)
[2021-02-09] MEDS ORDERED: Sodium Chloride 77 MEQ in IV 10% DEXTROSE 1,000 ML IV PRN (10:30)
[2021-02-09] MEDS: IV 10% DEXTROSE 1,000 ML IV PRN ×2 (10:30→20:53)
--- NOTE | 2021-02-09 10:44 | NUR ---
SURI [phone] (SON)
--- NOTE | 2021-02-09 10:46 | NUR ---
o lab. covid swab collected and sent
[2021-02-09 10:54] LABS: CALCIUM, SERUM 9.6 mg/dL (8.5-10.1); CARBON DIOXIDE 25 mmol/L (21-32); CHLORIDE 91 mmol/L (98-107); POTASSIUM 4.1 mmol/L (3.5-5.1); SODIUM SERUM 134 mmol/L (136-145)
[2021-02-09 10:58] LABS: CREATININE 9.5 mg/dL (0.6-1.3); GLUCOSE 354 mg/dL (74-106); UREA NITROGEN, BLOOD 89 mg/dL (7-18)
[2021-02-09 11:00] LABS: ALANINE AMINOTRANSFERASE 33 U/L (12-78); ALBUMIN 2.5 g/dL (3.4-5.0); ALKALINE PHOSPHATASE 122 U/L (46-116); ASPARTATE AMINOTRANSFERASE 40 U/L (15-37); BILIRUBIN,DIRECT 0.1 mg/dL (0.0-0.2); BILIRUBIN,TOTAL 0.3 mg/dL (0.2-1.0); TOTAL PROTEIN, SERUM 7.6 g/dL (6.4-8.2)
[2021-02-09 11:04] LABS: BASOPHILS % (AUTO) 0.3 % (0.0-2.0); EOSINOPHILS % (AUTO) 0.1 % (0.0-6.0); HEMATOCRIT 26 % (33-45); HEMOGLOBIN 8.6 g/dL (11.5-14.8); LYMPHOCYTES # (AUTO) 0.5 K/uL (0.8-4.8); LYMPHOCYTES % (AUTO) 3.3 % (20.0-44.0); MEAN CORPUSCULAR HGB CONC 33 g/dl (31.0-36.0); MEAN CORPUSCULAR VOLUME 111 fL (82-100); MONOCYTES # (AUTO) 0.7 K/uL (0.1-1.30); NEUTROPHILS # (AUTO) 12.7 K/uL (1.8-8.9); NEUTROPHILS % (AUTO) 91.3 % (43.0-81.0); PLATELET COUNT (AUTO) 214 K/uL (150-450); RED BLOOD CELL COUNT(AUTO) 2.35 MIL/uL (4.0-5.2)
[2021-02-09] MEDS ORDERED: CEFTRIAXONE 1GM BAG (ER ONLY) 1 GM/50 ML PIGGYBACK IV ONE (11:30)
--- NOTE | 2021-02-09 11:40 | NUR ---
COVID PCR SWAB COLLECTED AND SENT TO LAB
[2021-02-09] MEDS ORDERED: OLANZAPINE 10 MG VIAL IM ONE ×3 (11:44→12:00)
[2021-02-09] MEDS ORDERED: VANCOMYCIN 1 GM in IV D5W 250 ML IV SCH (12:00)
--- NOTE | 2021-02-09 12:17 | NUR ---
BS 47; DR ROBBINS VERBAL ORDER FOR IVF D10 @100ML/HR.
[2021-02-09] MEDS ORDERED: ATOR40TA PO (12:20)
[2021-02-09] MEDS ORDERED: FAMO20TA8 PO (12:20)
[2021-02-09] MEDS ORDERED: FOLI0.4T6 PO (12:20)
[2021-02-09] MEDS ORDERED: VALP250C3 PO (12:20)
[2021-02-09] MEDS ORDERED: ACET-868 PO (12:20)
[2021-02-09] MEDS ORDERED: CILO100T PO (12:20)
[2021-02-09] MEDS ORDERED: MAGN400O6 PO (12:20)
[2021-02-09] MEDS ORDERED: NA P133E RC (12:20)
[2021-02-09] MEDS ORDERED: PHEN100C4 PO (12:20)
[2021-02-09] MEDS ORDERED: NITR0.4T48 SL (12:20)
[2021-02-09] MEDS ORDERED: TRAM50TA2 PO (12:20)
[2021-02-09] MEDS ORDERED: HYDR12.55 PO (12:20)
[2021-02-09] MEDS ORDERED: NIFE-34 PO (12:20)
[2021-02-09] MEDS ORDERED: LIDO30CR47 TP (12:20)
[2021-02-09] MEDS ORDERED: CLOP75TA15 PO (12:20)
[2021-02-09] MEDS ORDERED: BISA10SU11 RC (12:20)
[2021-02-09] MEDS ORDERED: METO25TA20 PO (12:20)
[2021-02-09] MEDS ORDERED: ACET-2605 PO ×2 (12:20)
[2021-02-09] MEDS ORDERED: diphenhydrAMINE HCL 50 MG CAPSULE PO PRN (12:30)
[2021-02-09] MEDS ORDERED: BISACODYL SUPP (10 MG) 10 MG/SUPP.RECT SUPP.RECT RC PRN (12:30)
[2021-02-09] MEDS ORDERED: TRAMADOL HCL 50 MG TABLET PO PRN (12:30)
[2021-02-09] MEDS ORDERED: MAGNESIUM HYDROXIDE 30 ML UDC PO PRN ×2 (12:30→13:00)
[2021-02-09] MEDS ORDERED: NITROGLYCERIN 0.4 MG/TAB BOTTLE SL PRN (12:30)
[2021-02-09] MEDS ORDERED: NA PHOS,M-B/NA PHOS,DI-BA 1 EA ENEMA RC PRN (12:30)
[2021-02-09] MEDS ORDERED: ACETAMINOPHEN 325 MG TABLET PO PRN ×2 (12:30→13:00)
--- NOTE | 2021-02-09 12:30 | NUR ---
PT TAKEN TO CT VIA [facility]
--- NOTE | 2021-02-09 12:42 | NUR ---
PT RETURNED TO ER BED [address]
--- NOTE | 2021-02-09 12:47 | NUR ---
PT A/OX1. TOLERATING R/A WELL. L WRIST #22G IVF D10 @100ML/HR; TOLERATING WELL. PT CALM AND IN BED. NO ACUTE DISTRESS AT THIS TIME. SAFETY MEASURES IN PLACE
--- NOTE | 2021-02-09 12:50 | NUR ---
BS 168; ROSENDO CARRANZA AWARE WITH NO NEW ORDERS
[2021-02-09] MEDS ORDERED: Z GUARD REMEDY 2 OZ OINT TP PRN (13:00)
[2021-02-09] MEDS ORDERED: MAG HYDROX/AL HYDROX/SIMETH 30 ML UDC PO PRN (13:00)
[2021-02-09] MEDS ORDERED: DEXTROSE 50%-WATER 50 ML DISP.SYRIN IVP PRN (13:00)
[2021-02-09] MEDS ORDERED: ONDANSETRON HCL/PF 4 MG/2 ML VIAL IVP PRN (13:00)
[2021-02-09] MEDS: CLONIDINE HCL 0.1 MG TABLET PO SCH ×2 (13:00→21:00)
--- NOTE | 2021-02-09 14:02 | NUR ---
IDA MIDLINE #18G S/L; PATENT AND INTACT
--- NOTE | 2021-02-09 14:36 | NUR ---
CALLED FOR BED 120 - T
--- NOTE | 2021-02-09 14:39 | NUR ---
CALLED [facility] TO GIVE REPORT; RN NOT AVAILABLE AT THIS TIME, WILL TRY AGAIN LATER
--- NOTE | 2021-02-09 15:15 | NUR ---
PT TRANSFERRED TO [facility]; BEDSIDE REPORT GIVEN TO LUIS EDUARDO WALTER
--- NOTE | 2021-02-09 15:46 | NUR ---
RN NOTES; BP MEDICATION NOT GIVEN. PT BP 98/60. WILL CONTINUE TO MONITOR.
[2021-02-09 16:00] VITALS: BP 96/60
[2021-02-09] MEDS: METOPROLOL TARTRATE 25 MG TABLET PO SCH (16:18)
[2021-02-09] MEDS: PHENYTOIN EXTENDED RELEASE 100 MG CAPSULE PO SCH (17:00)
[2021-02-09] MEDS: CALCIUM ACETATE 667 MG CAP/TAB PO SCH (17:11)
[2021-02-09] MEDS: DIVALPROEX SODIUM 500 MG TABLET.DR PO SCH (17:12)
[2021-02-09] MEDS: BLOOD SUGAR DIAGNOSTIC 1 EACH STRIP IN SCH ×2 (17:21→22:00)
[2021-02-09] MEDS: DEXTROSE 50%-WATER 50 ML DISP.SYRIN IV PRN ×2 (17:21→18:05)
--- NOTE | 2021-02-09 18:06 | NUR ---
RN NOTES; B/S TAKEN WITH RESULTS OF 11. 50% DEXTROSE INJECTION GIVEN. B/S RECHECKED WITH RESULT OF 30. MD CALLED WITH RECOMMENDATION TO CONTINUE TO GIVE DEXTROSE INJECTION TILL PT B/S REACHES ABOVE 60. WILL CONTINUE TO MONITOR.
--- NOTE | 2021-02-09 18:14 | NUR ---
RN NOTES; ZAYNABANTIN NOTE GIVEN. PT B/S LOW, PT SLEEPY, UNABLE TO SWALLOW. WILL CONTINUE TO MONITOR.
--- NOTE | 2021-02-09 18:31 | NUR ---
RN CLOSING NOTES; RECEIVED PT FROM ER. PT CAME IN WITH C/O OF HYPOGLYCEMIA AT 15. PT A/OX1, UNABLE TO ASSESS IF PT IS IN PAIN. PT TOLERATING RA WITH 02 SAT AT 96%. PT NOT ABLE TO TOLERATE MEDICATIONS. PT IS SLEEPY AND DIFFICULT TO AROUSE. B/S TAKEN WITH LOW RESULTS, DEXTROSE INJECTION GIVEN. MD AWARE. WILL CONTINUE TO MONITOR SUGAR TILL RESULTS ABOVE 60. PT KEPT CLEAN, DRY AND COMFORTABLE. WILL ENDORSE TO PLATING AND POINT ASSEMBLY SUPERVISOR.
--- NOTE | 2021-02-09 18:41 | NUR ---
RN NOTES; B/S RETAKEN WITH RESULT OF 131. PT WAS HYPOGLYCEMIC. NO INSULIN GIVEN AT THIS TIME. WILL CONTINUE TO MONITOR.
--- NOTE | 2021-02-09 19:56 | NUR ---
RN NOTE PATIENT IN BED AND LETHARGIC, RESPONDS TO TACTILE STIMULI. ON ROOM AIR, NO S/S OF RESPIRATORY DISTRESS. UNABLE TO ASSESS FOR PAIN. NOTED WITH LEFT CHEST WALL PERM, DRESSING APPLIED. IV ACCESS ON IDA MIDLINE PATENT AND INTACT RUNNING IV DEXTROSE 10% @75ML/HR. NO SIGNS OF INFILTRATION. BED LOCKED AND IN LOWEST POSITION. CALL LIGHT WITHIN REACH. ALL NEEDS ANTICIPATED.
[2021-02-09 20:00] VITALS: BP 98/60
[2021-02-09] MEDS: ATORVASTATIN 40 MG TABLET PO SCH (22:00)
--- NOTE | 2021-02-09 22:25 | NUR ---
PATIENT PULLED OUT MIDLINE, PRESSURE AND GAUZE APPLIED. INSERTED #22 G ON LEFT WRIST WITH GOOD BLOOD RETURN BY CHARGE NURSE RAISSA. PATIENT COMBATIVE AND HITTING STAFF. Addendum: 02/10/21 at 0117 by RODRÍGUEZ RUANO RN PATIENT ALSO MORE AWAKE AND RESPONSIVE TO NAME ONLY.
[2021-02-10] VITALS: BP 101/63
--- NOTE | 2021-02-10 00:26 | NUR ---
PATIENT ATTEMPTED TO PULL OUT LEFT CHEST WALL PERMACATH AND REMOVED DRESSSING. SPOKE WITH DR. BRANDO COX, RECEIVED NEW ORDER FOR BILATERAL SOFT WRIST RESTRAINTS AND MIDLINE INSERTION.
--- NOTE | 2021-02-10 01:17 | NUR ---
ESTABLISHED IDA MIDLINE #18 BY MIDLINE NURSE LIZETH WALTER.
[2021-02-10 04:00] VITALS: BP 109/72
[2021-02-10] MEDS: CLONIDINE HCL 0.1 MG TABLET PO SCH ×3 (05:00→21:00)
--- NOTE | 2021-02-10 07:14 | NUR ---
RN NOTE PATIENT OPENS EYES AND RESPONSIVE TO VERBAL AND TACTILE STIMULI. NONVERBAL. ON ROOM AIR, NO S/S OF RESPIRATORY DISTRESS. WITH LEFT CHEST WALL PERM, DRESSING INTACT. IV ACCESS ON IDA MIDLINE PATENT AND INTACT RUNNING IV DEXTROSE 10% @75ML/HR. NO SIGNS OF INFILTRATION. STILL NOTED WITH BILATERAL SOFT WRIST RESTRAINTS. BED LOCKED AND IN LOWEST POSITION. BED ALARM ON. CALL LIGHT WITHIN REACH. WILL ENDORSE TO AM SHIFT.
--- NOTE | 2021-02-10 07:15 | NUR ---
RN NOTES BS ALREADY CHECKED BY INDUSTRIAL MAINTENANCE MECHANIC RN.
[2021-02-10] MEDS: BLOOD SUGAR DIAGNOSTIC 1 EACH STRIP IN SCH ×5 (07:30→22:22)
[2021-02-10] MEDS: CALCIUM ACETATE 667 MG CAP/TAB PO SCH ×3 (08:00→17:26)
[2021-02-10 08:04] LABS: BASOPHILS % (AUTO) 0.1 % (0.0-2.0); EOSINOPHILS % (AUTO) 0.1 % (0.0-6.0); HEMATOCRIT 26 % (33-45); HEMOGLOBIN 8.6 g/dL (11.5-14.8); LYMPHOCYTES # (AUTO) 0.5 K/uL (0.8-4.8); LYMPHOCYTES % (AUTO) 2.6 % (20.0-44.0); MEAN CORPUSCULAR HGB CONC 33 g/dl (31.0-36.0); MEAN CORPUSCULAR VOLUME 110 fL (82-100); MONOCYTES # (AUTO) 0.7 K/uL (0.1-1.30); MONOCYTES % (AUTO) 3.5 % (2.0-12.0); NEUTROPHILS # (AUTO) 17.9 K/uL (1.8-8.9); NEUTROPHILS % (AUTO) 93.7 % (43.0-81.0); PLATELET COUNT (AUTO) 189 K/uL (150-450); RED BLOOD CELL COUNT(AUTO) 2.37 MIL/uL (4.0-5.2); WHITE BLOOD COUNT (AUTO) 19.1 K/uL (4.3-11.0)
[2021-02-10 08:49] LABS: CALCIUM, SERUM 9.9 mg/dL (8.5-10.1); POTASSIUM 4.6 mmol/L (3.5-5.1)
[2021-02-10] MEDS: CLOPIDOGREL BISULFATE 75 MG TABLET PO SCH (09:00)
[2021-02-10] MEDS: HYDROCHLOROTHIAZIDE 25 MG TABLET PO SCH (09:00)
[2021-02-10] MEDS: PHENYTOIN EXTENDED RELEASE 100 MG CAPSULE PO SCH ×3 (09:00→16:05)
[2021-02-10] MEDS: LOSARTAN POTASSIUM 50 MG TABLET PO SCH (09:00)
[2021-02-10] MEDS: NIFEdipine XL (30MG) 30 MG TAB PO SCH (09:00)
[2021-02-10] MEDS: METOPROLOL TARTRATE 25 MG TABLET PO SCH ×2 (09:00→16:05)
[2021-02-10] MEDS: LEVETIRACETAM (250 MG) 250 MG TABLET PO SCH (09:00)
[2021-02-10] MEDS: CILOSTAZOL 100 MG TABLET PO SCH (09:00)
[2021-02-10] MEDS: FOLIC ACID 1 MG TABLET PO SCH (09:00)
[2021-02-10] MEDS: FAMOTIDINE (20 MG) 20 MG TABLET PO SCH (09:00)
[2021-02-10] MEDS: DIVALPROEX SODIUM 500 MG TABLET.DR PO SCH ×2 (09:00→16:05)
[2021-02-10] MEDS: VIT B CMPLX 3/FA/VIT C/BIOTIN 1 TAB TABLET PO SCH (09:00)
[2021-02-10 09:31] LABS: CREATININE 10.2 mg/dL (0.6-1.3)
--- NOTE | 2021-02-10 09:45 | NUR ---
RN NOTES PER RADIOTELEPHONE TECHNICAL OPERATOR ASSIGNED, PATIENT REFUSED TO EAT EARLIER, KEEPING HER MOUTH SHUT WHILE BEING ASSISTED TO EAT.
[2021-02-10] MEDS: IV 10% DEXTROSE 1,000 ML IV PRN ×2 (10:06→22:43)
[2021-02-10] MEDS: CEFTRIAXONE 1 G in IV D5W 50 ML IV SCH (10:11)
[2021-02-10] MEDS: INSULIN REGULAR, HUMAN 100 UNIT/ML 3 ML VIAL SQ PRN ×2 (11:32→18:30)
--- NOTE | 2021-02-10 11:50 | NUR ---
RN NOTES PATIENT WAS SEEN BY DR. NORIS Ngo/ ORDERS NOTED.
--- NOTE | 2021-02-10 13:47 | NUR ---
RN NOTES SPOKE W/ PATIENT'S DTR NEERU DAMON ([phone]) AND PROVIDED TELEPHONE CONSENT FOR HEMODIALYSIS. ALSO PROVIDED UPDATE ON PATIENT'S CURRENT CONDITION AND PLAN OF CARE.
[2021-02-10 16:00] VITALS: BP 124/56
--- NOTE | 2021-02-10 17:27 | NUR ---
RN NOTES TELEPHONE CONSENT OBTAINED FROM EDDIE SIDDIQI, SIGNED BY ME AND WITNESSED BY ANOTHER JOSE ANGEL MEDINA. CONSENT PLACED IN CHART.
--- NOTE | 2021-02-10 18:30 | NUR ---
RN NOTES BS TAKEN; INSULIN NOT GIVEN PATIENT DID NOT EAT DINNER AND TENDS TO HAVE LOW BLOOD SUGAR. WILL CONTINUE TO MONITOR.
--- NOTE | 2021-02-10 18:40 | NUR ---
RN NOTES PATIENT WAS SEEN BY DR. RODAS TODAY. PATIENT FOR SCHEDULED HEMODIALYSIS TODAY. HD NURSE AT BEDSIDE.
[2021-02-10] MEDS ORDERED: EPOETIN ALFA (4000 UNIT) 4,000 UNIT/ML VIAL IV PRN (19:00)
--- NOTE | 2021-02-10 19:30 | NUR ---
RN OPENING NOTE RECEIVED PATIENT IN BED. VERY CONFUSED, MUMBLING WORDS, NOT ANSWERING QUESTIONS. HD RN AT BEDSIDE. PATIENT IS TRYING TO REMOVE HD CATH. TOLERATING ROOM AIR . RESPIRATIONS ARE EVEN AND UNLABORED. NO S/S SOB NOTED. NO S/S PAIN NOTED. IV ACCESS IN IDA MIDLINE RUNNING 10%DEXTROSE@75ML/HR. BILATERAL SOFT WRIST RESTRAINTS ON PATIENT. BED IS LOW AND LOCKED, HOB ELEVATED IN SEMI FOWLERS, SIDE RAILS UP X2, CALL LIGHT WITHIN REACH.
[2021-02-10 20:00] VITALS: BP 107/67
[2021-02-10] MEDS ORDERED: ALTEPLASE CATHFLO 2 MG/VIAL XX ONE (21:00)
[2021-02-10] MEDS: ATORVASTATIN 40 MG TABLET PO SCH (22:00)
--- NOTE | 2021-02-10 22:00 | NUR ---
RN NOTE HD RN REMOVED 600ML.
[2021-02-10] MEDS: DEXTROSE 50%-WATER 50 ML DISP.SYRIN IV PRN ×2 (22:31→23:15)
--- NOTE | 2021-02-10 23:34 | NUR ---
RN NOTE INFORMED FORMAT PROOFREADER DR. JORGENSEN THAT PATIENT BS 19/16, D50 GIVEN, REASSESS BS 46/47 D50 GIVEN AGAIN. PATIENT IS ALREADY ON 10% DEXTROSE RUNNING AT 75ML/HR.DR. JORGENSEN GAVE ORDERS TO CHANGE TO [facility] STATUS, CHECK BLOOD SUGAR Q2HRS UNTIL 8AM, IF BLOOD SUGAR IS LESS THAN 120 THEN PUSH D50. ORDERS READ BACK, NOTED AND CARRIED OUT.
[2021-02-11] VITALS (8 sets, daily range): BP systolic 105–171; BP diastolic 52–86
[2021-02-11] MEDS: DEXTROSE 50%-WATER 50 ML DISP.SYRIN IV PRN ×2 (00:04→22:00)
--- NOTE | 2021-02-11 00:14 | NUR ---
rn note informed dr. meza patient blood sugar is going down despite recent increase, went from bs 47 to bs 19. order received fro stat cmp. lab called to inform. patient is awake but altered and trying to remove restraints.
[2021-02-11 00:54] LABS: CALCIUM, SERUM 8.3 mg/dL (8.5-10.1); CREATININE 7.3 mg/dL (0.6-1.3); POTASSIUM 4.3 mmol/L (3.5-5.1)
[2021-02-11 00:59] LABS: BILIRUBIN,TOTAL 0.2 mg/dL (0.2-1.0); TOTAL PROTEIN, SERUM 6.8 g/dL (6.4-8.2)
[2021-02-11] MEDS ORDERED: BLOOD SUGAR DIAGNOSTIC 1 EACH STRIP IN SCH (01:00)
--- NOTE | 2021-02-11 01:08 | NUR ---
rn note informed dr. meza that cmp shows blood sugar 353. and the accu check machine recent bs is 191 received orders to change machine, stop blood sugar checks q2hr and remove d50 push if blood sugar is less than 120. orders read back noted and carried out.
[2021-02-11] MEDS: CLONIDINE HCL 0.1 MG TABLET PO SCH ×4 (05:00→21:00)
--- NOTE | 2021-02-11 07:35 | NUR ---
RN OPENING NOTES Patient seen comfortably lying in bed, no apparent distress noted, respirations even and unlabored, no SOB, denies any pain or discomfort at this time, no grimacing. Call light left within reach, safety precautions in place, brakes locked, side rails up X 2, will monitor closely for any changes.
--- NOTE | 2021-02-11 07:46 | NUR ---
PER [facility] COVID PCR NEGATIVE.
[2021-02-11] MEDS: CALCIUM ACETATE 667 MG CAP/TAB PO SCH ×6 (08:00→17:10)
--- NOTE | 2021-02-11 08:17 | NUR ---
RN CLOSING NOTE PATIENT RESTING IN BED. VERY CONFUSED, MUMBLING WORDS, NOT ANSWERING QUESTIONS. HD REMOVED 600ML LAST NIGHT. REMAINS TOLERATING ROOM AIR .NO RESP DISTRESS. NO PAIN. IDA MIDLINE RUNNING 10%DEXTROSE@75ML/HR. BILATERAL SOFT WRIST RESTRAINTS MAINTAINED, PATIENT WAS VERY RESTLESS THROUGHOUT THE NIGHT, KCIKING TRYING TO REMOVE RESTRAINTS. BED REMAIN S LOW AND LOCKED, HOB ELEVATED IN SEMI FOWLERS, SIDE RAILS UP X2, CALL LIGHT WITHIN REACH. WILL ENDORSE TO ONCOMING SHIFT,
[2021-02-11] MEDS: LEVETIRACETAM (250 MG) 250 MG TABLET PO SCH ×2 (08:33→09:00)
[2021-02-11] MEDS: VIT B CMPLX 3/FA/VIT C/BIOTIN 1 TAB TABLET PO SCH ×2 (08:33→09:00)
[2021-02-11] MEDS: DIVALPROEX SODIUM 500 MG TABLET.DR PO SCH ×3 (08:33→17:00)
[2021-02-11] MEDS: PHENYTOIN EXTENDED RELEASE 100 MG CAPSULE PO SCH ×5 (08:34→17:00)
[2021-02-11] MEDS: FOLIC ACID 1 MG TABLET PO SCH ×2 (08:34→09:00)
[2021-02-11] MEDS: CILOSTAZOL 100 MG TABLET PO SCH ×2 (08:34→09:00)
[2021-02-11] MEDS: CLOPIDOGREL BISULFATE 75 MG TABLET PO SCH ×2 (08:34→09:00)
[2021-02-11] MEDS: FAMOTIDINE (20 MG) 20 MG TABLET PO SCH ×2 (08:34→09:00)
[2021-02-11] MEDS: BLOOD SUGAR DIAGNOSTIC 1 EACH STRIP IN SCH ×4 (08:47→21:53)
[2021-02-11] MEDS: LOSARTAN POTASSIUM 50 MG TABLET PO SCH (09:00)
[2021-02-11] MEDS: NIFEdipine XL (30MG) 30 MG TAB PO SCH (09:00)
[2021-02-11] MEDS: HYDROCHLOROTHIAZIDE 25 MG TABLET PO SCH (09:00)
[2021-02-11] MEDS: METOPROLOL TARTRATE 25 MG TABLET PO SCH ×3 (09:00→17:01)
[2021-02-11] MEDS: CEFTRIAXONE 1 G in IV D5W 50 ML IV SCH (11:49)
[2021-02-11] MEDS: IV 10% DEXTROSE 1,000 ML IV PRN (12:01)
--- NOTE | 2021-02-11 18:26 | NUR ---
RN CLOSING NOTES Patient in bed, AO X 1, with episodes of confusion and forgetfulness, reorientation provided as needed. Respirations even and unlabored, no dizziness, no palpitations, denies any pain or discomfort, no grimacing, no apparent distress noted, no SOB. All medications given per MD order, patient preferred not to take her medications, risk and benefits explained thrice, still refused, hospitalist aware. No s/s of hypo/hyperglycemia noted, no tremors, no change in level of consciousness. Patient has an order for soft wrist restraint for safety, visual check rendered every 15 minutes, patient repositioned frequently, no s/s of circulation impairment noted at this time, skin warm to touch, no pallor or cyanosis noted. Kept clean and dry, all needs attended, aspiration precautions observed at all times, call light left within reach, safety precautions in place, brakes locked, side rails up X 2, will endorse to next shift for continuity of care.
--- NOTE | 2021-02-11 19:35 | NUR ---
RN OPENING NOTE PATIENT RESTING IN BED, WITH SOFT BILATERAL RESTRAINTS INTACT, ON ROOM AIR. WAS NOT ANSWERING QUESTIONS, AND MUMBLING WORDS. IDA MIDLINE INTACT, FLUSHED AND PATENT. SIDE RAILS UP X 3. CALL LIGHT WITHIN REACH, BED LOCKED, AND IN SEMI FOWLERS POSITION. PATIENT CURRENTLY NOT IN ANY DISTRESS.
--- NOTE | 2021-02-11 20:15 | NUR ---
RN NOTES PT'S BP IS AT 171/52; RECHECKED AND STILL >160 SBP. NO PRN MEDICATION LISTED. WILL NOTIFY RIGOBERTO CARRANZA (). COMMUNICATED WITH RIGOBERTO CARRANZA (DR. MARMOLEJO) PROVIDED ALL INFO ABOUT PT. ADVISED ABOUT PT'S BP AND RESTLESSNESS AND AGITATION DURING THE AM SHIFT AND REFUSAL FOR ORAL MEDS TOO. REQUESTED FOR PRN MEDS. MD ORDERED HYDRALAZINE 10MG Q4H PRN FOR SBP >160 AND ATIVAN 1MG IV Q6H PRN FOR ANXIETY. RN ACKNOWLEDGED AND WILL CARRY OUT ORDERED. Addendum: 02/11/21 at 2306 by TIFFANY DIETRICH RN @2130 BP IS AT 140/68 @2200 BP IS AT 121/58 WILL CONTINUE TO ASSESS AND MONITOR THROUGHOUT THE SHIFT.
[2021-02-11] MEDS ORDERED: hydrALAZINE HCL IV 20 MG VIAL IV PRN (20:30)
[2021-02-11] MEDS ORDERED: LORAZEPAM INJ 2 MG/ML VIAL IV PRN (20:30)
--- NOTE | 2021-02-11 20:30 | NUR ---
RN NOTES ATTEMPTED TO DO SKIN/WOUND ASSESSMENT TO TAKE PHOTO BUT PT HAS BEEN RESTLESS AND COMBATIVE. WILL REATTEMPT WITHIN THE SHIFT.
[2021-02-11 20:54] LABS: BASOPHILS # (AUTO) 0.1 K/uL (0.0-0.2); BASOPHILS % (AUTO) 0.3 % (0.0-2.0); EOSINOPHILS % (AUTO) 0.1 % (0.0-6.0); HEMATOCRIT 25 % (33-45); HEMOGLOBIN 8.5 g/dL (11.5-14.8); LYMPHOCYTES # (AUTO) 0.9 K/uL (0.8-4.8); LYMPHOCYTES % (AUTO) 4.7 % (20.0-44.0); MEAN CORPUSCULAR HGB CONC 34 g/dl (31.0-36.0); MEAN CORPUSCULAR VOLUME 109 fL (82-100); MONOCYTES % (AUTO) 5.1 % (2.0-12.0); NEUTROPHILS % (AUTO) 89.8 % (43.0-81.0); PLATELET COUNT (AUTO) 164 K/uL (150-450); RED BLOOD CELL COUNT(AUTO) 2.31 MIL/uL (4.0-5.2)
[2021-02-11 21:09] LABS: CALCIUM, SERUM 9.1 mg/dL (8.5-10.1); POTASSIUM 5.3 mmol/L (3.5-5.1)
[2021-02-11 21:10] LABS: CREATININE 8.6 mg/dL (0.6-1.3)
--- NOTE | 2021-02-11 21:11 | NUR ---
RN NOTES CRITICAL LAB RECEIVED CREATININE 8.6 ( CALL RECEIVED FROM MARIKA), ONCSERVANDO CARRANZA (DR. MARMOLEJO) MADE AWARE. NO NEW ORDERS.. WILL ENDORSE IN THE AM SHIFT.
[2021-02-11] MEDS: MUPIROCIN OINT 2% 22 GM TUBE NS SCH (21:22)
[2021-02-11] MEDS: ATORVASTATIN 40 MG TABLET PO SCH (21:25)
--- NOTE | 2021-02-11 21:25 | NUR ---
RN NOTES ALL DUE ORAL MEDS FOR [id number] NOT GIVEN; PT REFUSED AND VERY CONFUSED, UNABLE TO TOLERATE ORAL MEDS; HIGH RISK FOR ASPIRATION. ONCSERVANDO CARRANZA WELL AWARE (DR. MARMOLEJO). WILL CONTINUE TO ASSESS AND MONITOR THROUGHOUT THE SHIFT.
[2021-02-11] MEDS: INSULIN REGULAR, HUMAN 100 UNIT/ML 3 ML VIAL SQ PRN (21:53)
[2021-02-11 21:58] LABS: LYMPHOCYTES % (MANUAL) 5 % (16-48); MONOCYTES % (MANUAL) 2 % (0-11.0); NEUTROPHILS % (MANUAL) 93 (42-76)
--- NOTE | 2021-02-11 22:17 | NUR ---
RN NOTES ACCU CHECK DONE ; 56MG/DL. PRN D50 GIVEN INDICATED AND ORDERED. WILL RECHECK BLOOD SUGAR AT 2230. AUTOMOTIVE MACHINIST APPRENTICE MADE AWARE WILL CONTINUE TO ASSESS AND MONITOR THROUGHOUT THE SHIFT. Addendum: 02/11/21 at 2241 by TIFFANY DIETRICH RN @2230 ACCU CHECK DONE : 73MG/DL. WILL CONTINUE TO ASSESS AND MONITOR THROUGHOUT THE SHIFT.
--- NOTE | 2021-02-11 23:06 | NUR ---
RN NOTES RECEIVED CALL FROM FAMILY (SURI LOYA [phone] POA) AND (ROLA SISTER [phone]) PROVIDED GENERAL UPDATES ABOUT PT. SURI SAID HE HAS A POA AND HE NEEDS TO BE THE FIRST PERSON TO NOTIFY AND CONTACT # IS [phone] AND 2ND PERSON TO NOTIFY WILL BE ROLA SISTER [phone]. HE ALSO REQUESTED THAT FOLLOWING PERSON TO BE GIVEN INFO IF HE AND ROLA WONT BE AVAILABLE. STEFAN LOYA (DAUGHTER [phone]) AND GLEN LOYA (SON-[phone]) RN ACKNOWLEDGED. HE ALSO MENTIONED NEERU LOYA NEEDS TO BE REMOVED FROM PT'S LIST/RECORD. RN ACKNOWLEDGED. CALLED ADMITTING AND HAVE THIS UPDATED.
--- NOTE | 2021-02-11 23:43 | NUR ---
RN NOTES CALL RECEIVED FROM NEERU LOYA (DAUGHTER) BUT WAS NOT ABLE TO GIVE ANY INFO (NEERU NOT LISTED PERSON TO NOTIFY AND UPDATES) SHE ACKNOWLEDGED.
[2021-02-12] VITALS: BP 103/63
--- NOTE | 2021-02-12 | NUR ---
RN NOTES PATIENT REMAINED TO BE IN NO SIGNS OF ACUTE RESPIRATORY DISTRESS , VITAL SIGNS WNL AT THIS TIME. WILL CONTINUE TO MONITOR AND REASSESS FOR ANY CHANGES THROUGHOUT THE SHIFT.
[2021-02-12] MEDS: IV 10% DEXTROSE 1,000 ML IV PRN ×2 (02:00→14:14)
--- NOTE | 2021-02-12 02:18 | NUR ---
RN NOTES PT IS RESTLESS AND AGITATED. PRN ATIVAN TO BE GIVEN. V/S CHECKED BP 145/85 HR: 92. WILL CONTINUE TO MONITOR AND ASSESS THROUGHOUT THE SJIFT.
--- NOTE | 2021-02-12 04:00 | NUR ---
RN NOTES PATIENT REMAINED TO BE IN NO SIGNS OF ACUTE RESPIRATORY DISTRESS , VITAL SIGNS STABLE AT THIS TIME. REGULAR REPOSITIONING DONE AND AM PATIENT CARE. WILL CONTINUE TO MONITOR AND REASSESS FOR ANY CHANGES THROUGHOUT THE SHIFT.
--- NOTE | 2021-02-12 04:01 | NUR ---
RN NOTES RE-ATTEMPTED TO TAKE PICTURE PART OF SKIN ASSESSMENT BUT PT REFUSED AND AGITATED. WILL ENDORSE TO AM SHIFT OT SECURE PICTURE FOR SKIN/WOUND ASSESSMENT.
[2021-02-12 04:33] VITALS: BP 138/72
[2021-02-12] MEDS: CLONIDINE HCL 0.1 MG TABLET PO SCH ×3 (05:00→21:00)
--- NOTE | 2021-02-12 05:00 | NUR ---
RN NOTES HD RN (RASHMI) WENT TO SEE PT TO CHECK AND ASSESS L CHEST WALL PERMA CATH, PT WAS SUPPOSEDLY TO GET HD YESTERDAY 02/11 BUT PER HD RN DURING THE SHIFT ACCESS NOT WORKING. HD RN (RASHMI) CONFIRMED GOOD ACCESS; PATENT, INTACT AND FLUSHING. HE WILL INFORM DR. RODAS ABOUT THIS AND ABOUT MISSED HD SCHEDULE. PRIMARY RN ACKNOWLEDGED AND DESIGN CHIEF MADE AWARE.
[2021-02-12 05:04] LABS: BASOPHILS # (AUTO) 0.1 K/uL (0.0-0.2); BASOPHILS % (AUTO) 0.3 % (0.0-2.0); EOSINOPHILS % (AUTO) 0.1 % (0.0-6.0); HEMATOCRIT 24 % (33-45); HEMOGLOBIN 8.2 g/dL (11.5-14.8); LYMPHOCYTES # (AUTO) 0.9 K/uL (0.8-4.8); LYMPHOCYTES % (AUTO) 4.6 % (20.0-44.0); MEAN CORPUSCULAR HGB CONC 34 g/dl (31.0-36.0); MEAN CORPUSCULAR VOLUME 109 fL (82-100); MONOCYTES # (AUTO) 0.8 K/uL (0.1-1.30); MONOCYTES % (AUTO) 4.4 % (2.0-12.0); NEUTROPHILS # (AUTO) 17.2 K/uL (1.8-8.9); NEUTROPHILS % (AUTO) 90.6 % (43.0-81.0); PLATELET COUNT (AUTO) 166 K/uL (150-450); RED BLOOD CELL COUNT(AUTO) 2.22 MIL/uL (4.0-5.2)
[2021-02-12 05:13] LABS: CALCIUM, SERUM 8.9 mg/dL (8.5-10.1); POTASSIUM 5.4 mmol/L (3.5-5.1)
--- NOTE | 2021-02-12 05:20 | NUR ---
RN NOTES CRITICAL LAB RECEIVED; CREATININE LEVEL 9. WILL ENDORSE PER PROTOCOL.
--- NOTE | 2021-02-12 05:48 | NUR ---
RN NOTES CLONIDINE .2MG (2TABS) SCHEDULE FOR 0500 NOT GIVEN; PT REFUSED AND CONFUSED, UNABLE TO TOLERATE ORAL MEDS; HIGH RISK FOR ASPIRATION. WILL CONTINUE TO ASSESS AND MONITOR THROUGHOUT THE SHIFT.
[2021-02-12 06:38] LABS: LYMPHOCYTES % (MANUAL) 3 % (16-48); MONOCYTES % (MANUAL) 2 % (0-11.0); MYELOCYTES % 1 % (0-0); NEUTROPHILS % (MANUAL) 94 (42-76)
--- NOTE | 2021-02-12 06:48 | NUR ---
RN CLOSING NOTES PATIENT REMAINED TO BE IN NO SIGNS OF ACUTE RESPIRATORY DISTRESS , VITAL SIGNS STABLE AT THIS TIME. A/O X 1, AND IS SLEEPING IN BED WITH SOFT BILATERAL RESTRAINTS IN PLACE. CURRENTLY RESTING IN BED, WITH IDA MIDLINE INTACT. BED IN LOW POSITION, ON ROOM AIR, CALL LIGHT WITHIN REACH, AND HOB SLIGHTLY ELEVATED. WILL ENDORSE PLAN OF CARE TO UPCOMING SHIFT.
--- NOTE | 2021-02-12 07:15 | NUR ---
RN NOTE COMMUNICATION PER NAME PLATE STAMPER NURSE, WILL ENDORSE TO HOSPITALIST TO CONTACT FAMILY REQUESTED.
--- NOTE | 2021-02-12 07:26 | NUR ---
WOUND CARE CONSULT: PT PRESENTS WITH RT LOWER EXTREMITY DISCOLORED AREAS AND DARK BROWN COLOR TO RT 2ND TOE. PER NURSING STAFF, PT WAS PREVIOUSLY COMBATIVE. DPM CONSULT TO BE CALLED TO DR REYNOSO THIS AM. RECOMMENDATIONS MADE FOR SKIN PROTECTION. DISCUSSED WITH NURSING STAFF. MD IN AGREEMENT WITH PLAN OF CARE.
--- NOTE | 2021-02-12 07:30 | NUR ---
RN MORNING NOTE RECEIVED PT IN BED SLEEPING WITH HOB AT 30 DEGREES AND SOFT RESTRAINTS ON BILATERAL WRISTS. PT IS ON RA SAT 100% TOLERATING WELL WITH NO SIGNS OF LABORED BREATHING OR DISTRESS. PT IS A/OX1. PT IS SR ON TELE MONITOR. PT IS ON RENAL DIET. IV ACESS L UA MIDLINE AND CHEST WALL PERMACATH. PT SCHEDULED FOR HD LATER TODAY. BED IS LOCKED IN LOWEST POSITION X3 GUARD RAILS, CALL LIGHT WITHIN REACH, ALL HOSPITAL PROTOCOLS ARE IN PLACE. WILL CONTINUE TO MONITOR THE REST OF THIS SHIFT.
[2021-02-12 08:00] VITALS: BP 109/54
[2021-02-12] MEDS: CALCIUM ACETATE 667 MG CAP/TAB PO SCH ×3 (08:00→17:00)
[2021-02-12] MEDS: BLOOD SUGAR DIAGNOSTIC 1 EACH STRIP IN SCH ×4 (08:11→22:00)
--- NOTE | 2021-02-12 08:57 | NUR ---
RN NOTE COMMUNICATION ENDORSED MESSAGE TO HOSPITALIST OF FAMILY REQUEST TO TALK TO HOSPITALIST.
--- NOTE | 2021-02-12 08:57 | NUR ---
RN NOTE MEDICATION PT UNABLE TO TAKE PO MEDS. WILL CONTACT PHARMACY TO CHANGE TO IV MEDICATION IF APPLICABLE
[2021-02-12] MEDS: DIVALPROEX SODIUM 500 MG TABLET.DR PO SCH (08:58)
[2021-02-12] MEDS: LOSARTAN POTASSIUM 50 MG TABLET PO SCH (08:58)
[2021-02-12] MEDS: LEVETIRACETAM (250 MG) 250 MG TABLET PO SCH (08:59)
[2021-02-12] MEDS: PHENYTOIN EXTENDED RELEASE 100 MG CAPSULE PO SCH ×2 (08:59→13:00)
[2021-02-12] MEDS: METOPROLOL TARTRATE 25 MG TABLET PO SCH ×2 (08:59→16:59)
[2021-02-12] MEDS: FOLIC ACID 1 MG TABLET PO SCH (08:59)
[2021-02-12] MEDS: HYDROCHLOROTHIAZIDE 25 MG TABLET PO SCH (08:59)
[2021-02-12] MEDS: VIT B CMPLX 3/FA/VIT C/BIOTIN 1 TAB TABLET PO SCH (09:00)
[2021-02-12] MEDS: CLOPIDOGREL BISULFATE 75 MG TABLET PO SCH (09:00)
[2021-02-12] MEDS: FAMOTIDINE (20 MG) 20 MG TABLET PO SCH (09:00)
[2021-02-12] MEDS: NIFEdipine XL (30MG) 30 MG TAB PO SCH (09:00)
[2021-02-12] MEDS: CILOSTAZOL 100 MG TABLET PO SCH (09:00)
[2021-02-12] MEDS: MUPIROCIN OINT 2% 22 GM TUBE NS SCH ×2 (09:01→22:18)
--- NOTE | 2021-02-12 10:17 | NUR ---
RN NOTE FAMILY SISTER, ROLA, AT BEDSIDE. ENDORSED TO ROLA AND BROTHER, SURI (VIA CELL PHONE), THAT THIS NURSE ENDORSED REQUEST TO HOSPITALIST TO SPEAK WITH FAMILY.
[2021-02-12] MEDS: CEFTRIAXONE 1 G in IV D5W 50 ML IV SCH (11:58)
[2021-02-12 12:00] VITALS: BP 114/56
--- NOTE | 2021-02-12 12:30 | NUR ---
RN NOTE ACCUCHECK PT GLUCOSE DRAWN BY LAB. HARD FINGER STICK. PT BS 103. PER SLIDING SCALE, NO COVERAGE NEEDED AT THIS TIME.
[2021-02-12] MEDS: INSULIN REGULAR, HUMAN 100 UNIT/ML 3 ML VIAL SQ PRN (13:03)
[2021-02-12] MEDS ORDERED: diphenhydrAMINE HCL 50 MG/ML VIAL IJ PRN (14:30)
[2021-02-12] MEDS: KEPPRA 500 MG in IV NS 100 ML IV SCH (15:50)
[2021-02-12] MEDS: PHENYTOIN SODIUM IV 100 MG/2ML VIAL IV SCH ×2 (15:50→21:58)
[2021-02-12] MEDS: FAMOTIDINE/PF INJ 20 MG/2 ML VIAL IV SCH (15:51)
[2021-02-12 16:00] VITALS: BP 115/68
[2021-02-12] MEDS ORDERED: VALPROATE 250 MG in IV D5W 100 ML IV SCH (16:00)
[2021-02-12] MEDS: VANCOMYCIN 500 MG in IV D5W 100 ML IV PRN (17:00)
[2021-02-12] MEDS: DEXTROSE 50%-WATER 50 ML DISP.SYRIN IV PRN ×3 (17:08→23:23)
--- NOTE | 2021-02-12 19:00 | NUR ---
RN CLOSING NOTE PT IS RESTING IN BED WITH BILATERAL SOFT RESTRAINTS. PT IS ON RA SAT 100% TOLERATING WELL WITH NO SIGNS OF LABORED BREATHING OR DISTRESS. PT IS A/OX1. PT IS SR ON TELE MONITOR. PT HAD HD TODAY AND 1.4L REMOVED. PT DID NOT RECEIVE PO MED DUE TO ALTERED MENTAL STATUS. PHARMACY KNOWS AND CHANGED SOME MEDICATIONS TO IV. IV ACESS L UA MIDLINE AND CHEST WALL PERMACATH. BED IS LOCKED IN LOWEST POSITION X3 GUARD RAILS, CALL LIGHT WITHIN REACH, ALL HOSPITAL PROTOCOLS ARE IN PLACE. WILL ENDORSE TO AIRCRAFT LOAD CONTROLLER NURSE FOR ERIC.
--- NOTE | 2021-02-12 19:30 | NUR ---
RN OPENING NOTES RECEIVED PATIENT IN BED SLEEPING ON BED, RESPIRATORY EVEN AND UNLABORED, NO SOB NOTED AT THIS TIME. SATURATION AT 95% ON ROOM AIR SR ON THE MONITOR, HR IS 94. NOTED WITH IDA MIDLIME, PATENT AND FLUSHING WELL, NO S/S OF INFECTION OR INFILTRATION WITH D10 INFUSING AT 75 ML/HR. SAFETY MEASURES IMPLEMENTED. PATIENT BED ALARM IS ON. HEAD OF BED ELEVATED. BED IS LOCKED, IN LOWEST POSITION AND SIDE RAILS UP. CALL LIGHT WITHIN REACH OF THE PATIENT. WILL CONTINUE TO MONITOR AND REASSESS FOR ANY CHANGES.
--- NOTE | 2021-02-12 19:35 | NUR ---
RN NOTE BS RECHECKED 39 MG/DL S/P D50% ADMINISTERED BY JOVANY WALTER AT 1702. PT ASLEEP IN BED, NO SIGN OF DISTRESS, AROUSABLE. DR BEARDEN WAS NOTIFIED, ORDERS RECEIVED FOR ACCUCHECK Q2H UNTIL 7AM, ADMINISTER D50 50 ML FOR BS <120 AND STAT BMP. RESUME ACCUCHECK ACHS IN AM. SUPPLIER QUALITY ENGINEER MADE AWARE
[2021-02-12 20:00] VITALS: BP_SYST 116; BP_DIAS 56; BP_DIAS 94
--- NOTE | 2021-02-12 20:05 | NUR ---
RN NOTES PATIENT NOTED WITH BS- 15 mg/dL, D50% 25G/50ML GIVEN VIA IVP. PATIENT SLEEPING COMFORTABLY BUT EASY TO AROUSE, NO SOB NOTED, NOT IN DISTRESS. BLOOD SUGAR CHECKED AFTER 15MINS AND OBTAINED 74 mg/dL, PATIENT STILL SLEEPING BUT EASY TO AROUSE, NOT IN DISTRESS. CONTINUE TO MONITOR. WILL CHECK AGAIN AFTER TWO HOURS PER MD'S ORDER.
[2021-02-12 21:20] LABS: CALCIUM, SERUM 8.4 mg/dL (8.5-10.1); CREATININE 6.6 mg/dL (0.6-1.3)
--- NOTE | 2021-02-12 21:30 | NUR ---
RN NOTES CLONIDINE AND ATORVASTATIN NOT GIVEN, PATIENT UNABLE TO TOLERATE PO MEDS
[2021-02-12] MEDS: ATORVASTATIN 40 MG TABLET PO SCH (21:56)
--- NOTE | 2021-02-12 23:20 | NUR ---
RN NOTES PATIENT NOTED WITH BS- 60 mg/dL, D50% 25G/50ML GIVEN VIA IVP. PATIENT SLEEPING COMFORTABLY BUT EASY TO AROUSE, NO SOB NOTED, NOT IN DISTRESS. BLOOD SUGAR CHECKED AFTER 30MINS AND OBTAINED 213 mg/dL, PATIENT STILL SLEEPING BUT EASY TO AROUSE, NOT IN DISTRESS. CONTINUE TO MONITOR. WILL CHECK AGAIN AFTER TWO HOURS PER MD'S ORDER.
[2021-02-13] VITALS: BP 112/51
[2021-02-13] MEDS: KEPPRA 500 MG in IV NS 100 ML IV SCH ×3 (03:11→22:11)
[2021-02-13] MEDS: DEXTROSE 50%-WATER 50 ML DISP.SYRIN IV PRN (03:32)
[2021-02-13 04:00] VITALS: BP 109/52
[2021-02-13] MEDS: PHENYTOIN SODIUM IV 100 MG/2ML VIAL IV SCH ×3 (04:56→22:11)
[2021-02-13] MEDS: CLONIDINE HCL 0.1 MG TABLET PO SCH ×3 (05:00→21:00)
--- NOTE | 2021-02-13 05:10 | NUR ---
RN NOTES CATAPRES NOT GIVEN, PATIENT UNABLE TO TOLERATED PO MEDS.
--- NOTE | 2021-02-13 06:28 | NUR ---
RN CLOSING NOTE PT IS SLEEPING IN BED WITH BILATERAL SOFT RESTRAINTS. RESPIRATORY EVEN AND UNLABORED, NO SOB NOTED. PT IS ON RA SAT 100%. PT IS SR ON TELE MONITOR. PT DID NOT RECEIVE PO MED DUE TO UNABLE TO TOLERATE PO MEDS. BLOOD SUGAR CHECK Q2H UNTIL 7AM PER MD'S ORDER. PT. NOTED WITH IDA MIDLINE, PATENT AND FLUSH WITH NS AND CHEST WALL PERMA CATH. BED IS IN LOWEST POSITION AND LOCKED. KEPT CLEAN AND DRY. CALL LIGHT WITHIN REACH. ENDORSED TO NEXT SHIFT.
--- NOTE | 2021-02-13 07:30 | NUR ---
RN MORNING NOTE RECEIVED PT IN BED SLEEPING WITH HOB AT 30 DEGREES AND SOFT RESTRAINTS ON BILATERAL WRISTS. PT IS ON RA SAT 99% TOLERATING WELL WITH NO SIGNS OF LABORED BREATHING OR DISTRESS. PT IS A/OX1 AND CONTINUES TO REFUSE PO MEDS. PT IS SR ON TELE MONITOR. PT IS ON RENAL DIET. IV ACESS L UA MIDLINE AND CHEST WALL PERMACATH. BED IS LOCKED IN LOWEST POSITION X3 GUARD RAILS, CALL LIGHT WITHIN REACH, ALL HOSPITAL PROTOCOLS ARE IN PLACE. WILL CONTINUE TO MONITOR THE REST OF THIS SHIFT.
[2021-02-13 07:46] LABS: BASOPHILS # (AUTO) 0.1 K/uL (0.0-0.2); BASOPHILS % (AUTO) 0.2 % (0.0-2.0); EOSINOPHILS % (AUTO) 0.1 % (0.0-6.0); HEMATOCRIT 23 % (33-45); HEMOGLOBIN 7.8 g/dL (11.5-14.8); LYMPHOCYTES # (AUTO) 0.5 K/uL (0.8-4.8); LYMPHOCYTES % (AUTO) 2.3 % (20.0-44.0); MEAN CORPUSCULAR HGB CONC 34 g/dl (31.0-36.0); MEAN CORPUSCULAR VOLUME 109 fL (82-100); MONOCYTES # (AUTO) 0.7 K/uL (0.1-1.30); MONOCYTES % (AUTO) 2.9 % (2.0-12.0); NEUTROPHILS % (AUTO) 94.5 % (43.0-81.0); PLATELET COUNT (AUTO) 167 K/uL (150-450); RED BLOOD CELL COUNT(AUTO) 2.13 MIL/uL (4.0-5.2); WHITE BLOOD COUNT (AUTO) 23.3 K/uL (4.3-11.0)
[2021-02-13] MEDS: BLOOD SUGAR DIAGNOSTIC 1 EACH STRIP IN SCH ×4 (07:46→23:01)
[2021-02-13] MEDS: INSULIN REGULAR, HUMAN 100 UNIT/ML 3 ML VIAL SQ PRN ×2 (07:47→17:47)
--- NOTE | 2021-02-13 07:47 | NUR ---
RN NOTES ACCUCHECK PT IS ON D10. WILL HOLD INSULIN COVERAGE AND NOTIFY .
[2021-02-13] MEDS: CALCIUM ACETATE 667 MG CAP/TAB PO SCH ×3 (07:48→17:33)
--- NOTE | 2021-02-13 07:49 | NUR ---
RN NOTE PO MEDICATION PT IS A/0X1 AND UNABLE TO TAKE PO MEDICATIONS.
[2021-02-13] MEDS: IV 10% DEXTROSE 1,000 ML IV PRN ×2 (08:54→18:43)
[2021-02-13] MEDS: LOSARTAN POTASSIUM 50 MG TABLET PO SCH (09:00)
[2021-02-13] MEDS: NIFEdipine XL (30MG) 30 MG TAB PO SCH (09:00)
[2021-02-13] MEDS: METOPROLOL TARTRATE 25 MG TABLET PO SCH ×2 (09:00→17:00)
[2021-02-13] MEDS: CILOSTAZOL 100 MG TABLET PO SCH (09:00)
[2021-02-13] MEDS: CLOPIDOGREL BISULFATE 75 MG TABLET PO SCH (09:00)
[2021-02-13] MEDS: FOLIC ACID 1 MG TABLET PO SCH (09:00)
[2021-02-13] MEDS: VIT B CMPLX 3/FA/VIT C/BIOTIN 1 TAB TABLET PO SCH (09:00)
[2021-02-13] MEDS: HYDROCHLOROTHIAZIDE 25 MG TABLET PO SCH (09:00)
[2021-02-13 09:42] LABS: LYMPHOCYTES % (MANUAL) 4 % (16-48); MONOCYTES % (MANUAL) 2 % (0-11.0); MYELOCYTES % 1 % (0-0); NEUTROPHILS % (MANUAL) 93 (42-76)
[2021-02-13] MEDS: MUPIROCIN OINT 2% 22 GM TUBE NS SCH ×2 (09:42→22:52)
[2021-02-13 09:47] LABS: CALCIUM, SERUM 8.6 mg/dL (8.5-10.1); CREATININE 7.2 mg/dL (0.6-1.3); POTASSIUM 4.5 mmol/L (3.5-5.1)
[2021-02-13] MEDS: FAMOTIDINE/PF INJ 20 MG/2 ML VIAL IV SCH (09:48)
[2021-02-13] MEDS: VALPROATE 250 MG in IV D5W 100 ML IV SCH ×3 (10:48→22:11)
[2021-02-13] MEDS: CEFTRIAXONE 1 G in IV D5W 50 ML IV SCH (11:06)
--- NOTE | 2021-02-13 11:41 | NUR ---
RN NOTE CRITICAL LAB RECEIVED MESSAGE FROM LAB TO ENDORSE CRITICAL LAB: LACTIC ACID 3.9. MESSAGED DR. HAMM TO ENDORSE.
--- NOTE | 2021-02-13 12:37 | NUR ---
patient unresponsive vs bp 114/65,rr18,bs 120 rr 18 ,dr. juan garzon
--- NOTE | 2021-02-13 12:47 | NUR ---
dr. martinez responded and ordered cy head without contrast.
[2021-02-13 13:06] LABS: ABG BASE EXCESS -7.3 mmol/L; ABG OXYGEN SATURATION 96.8 % (92.0-98.5); ABG PCO2 23.8 mmHg (35.0-45.0); ABG PH 7.433 (7.350-7.450); ABG PO2 101.7 mmHg (75.0-100.0); AaDO2 19.5 mmHg; COHb 0.3 % (0.5-1.5); MetHb 0.1 % (0.0-1.5); O2Hb 96.4 % (94.0-97.0); SITE, ABG Right Radial; VENT MODE, BG ROOM AIR
--- NOTE | 2021-02-13 13:14 | NUR ---
ct head done awaits result.
--- NOTE | 2021-02-13 13:56 | NUR ---
CT HEAD AND ABG RESULT RELAYED TO DR. HAMM,VSS STILL UNRESPONSIVE NO NEW ORDERS .
[2021-02-13 14:05] VITALS: BP 108/55
--- NOTE | 2021-02-13 14:16 | NUR ---
PATIENT RESPONDING TO TOUCH.
[2021-02-13 14:48] LABS: BILIRUBIN,DIRECT 0.1 mg/dL (0.0-0.2); BILIRUBIN,TOTAL 0.3 mg/dL (0.2-1.0)
[2021-02-13 16:00] VITALS: BP 108/55
--- NOTE | 2021-02-13 16:40 | NUR ---
RN NOTE CRITICAL RECEIVED CALL FROM LAB. PT LACTIC ACID IS 5.8. ENDORSED DR. HAMM VIA MESSAGE.
[2021-02-13] MEDS ORDERED: IV NS 0.9% 1,000 ML IV ONE (17:00)
--- NOTE | 2021-02-13 17:00 | NUR ---
RN NOTE PER LAURE PHARMACIST GIVE BOLUS OF 3750 UNITS HEPARIN INSTEAD OF 4400, AND START INFUSION OF 850 KG/UNIT/HR INSTEAD OF 1000KG/UNIT/HR DR. HAMM IS AWARE PER LAURE
--- NOTE | 2021-02-13 17:30 | NUR ---
RN NOTE ACCUCHECK PT BS 125. PT IS ON D10. WILL HOLD INSULIN COVERAGE
--- NOTE | 2021-02-13 19:10 | NUR ---
RN NOTES RECEIVED PATIENT IN BED A/O X1. WITH IV ACCESS AT IDA MIDLINE PATENT FLUSHES WELL. WITH L CHEST PERMACATH INTACT. WITH ONGOING IVF OF D10W@75CC/HR. WITH SOFT BILATERAL RESTRAINTS IN PLACE. VITAL SIGNS TAKEN AND RECORDED PATIENT IS AFIB. HOB ELEVATED, CALL LIGHT WITHIN REACH. ALL SAFETY MEASURES IN PLACE. WILL CONTINUE TO MONITOR
--- NOTE | 2021-02-13 19:10 | NUR ---
RN CLOSING NOTE PT IN BED WITH HOB AT 30 DEGREES AND SOFT RESTRAINTS ON BILATERAL WRISTS. PT IS ON RA SAT 99% TOLERATING WELL WITH NO SIGNS OF LABORED BREATHING OR DISTRESS. PT IS A/OX1 AND CONTINUES TO REFUSE PO MEDS AND FOOD. PT IS SR ON TELE MONITOR. PT IS ON RENAL DIET. IV ACESS L UA MIDLINE AND CHEST WALL PERMACATH. PT HAD CT OF HEAD WO CONTRAST AND ORDER FOR HEPARIN DRIP HAS BEEN ORDERED. APTT 32.1. LACTIC ACID INCREASED FROM 3.9 - 5.8 MD HAS BEEN NOTIFIED. PT RECEIVED 1000ML NS ONE TIME. BED IS LOCKED IN LOWEST POSITION X3 GUARD RAILS, CALL LIGHT WITHIN REACH, ALL HOSPITAL PROTOCOLS ARE IN PLACE. WILL ENDORSE TO QUALITY ANALYST/TECHNICAL WRITER NURSE FOR ERIC.
[2021-02-13 20:00] VITALS: BP 129/74
[2021-02-13] MEDS ORDERED: HEPARIN SODIUM, PORCINE 5000 UNITS/1 ML VIAL IV ONE (21:00)
--- NOTE | 2021-02-13 21:00 | NUR ---
RN NOTES STARTED HEPARIN DRIP PER MD ORDER FOLLOWING HEPARIN DRIP PER NON ACS PROTOCOL PT WT: 47, BOLUS GIVEN 3750 UNITS THEN STARTED AT 850U/HR (8.5ML/HR). WILL CHECK PTT LEVEL AFTER 6 HOURS (3AM). WILL CONTINUE TO ASSESS AND MONITOR THE PATIENT.
[2021-02-13] MEDS: HEPARIN INFUSION/D5W 500 ML IV PRN (21:04)
[2021-02-13] MEDS: ATORVASTATIN 40 MG TABLET PO SCH (22:00)
--- NOTE | 2021-02-13 22:15 | NUR ---
RN NOTES LEVETIRACETAM 500 MG/5ML IS NOT GIVEN AT THIS TIME. IT WILL BE GIVEN @ 02/14/21 @3AM SCHEDULED. WILL CONTINUE TO MONITOR PATIENT.
--- NOTE | 2021-02-13 22:45 | NUR ---
RN NOTES BS 121MG/DL NO COVERAGE GIVEN AT THIS TIME.
[2021-02-14] VITALS: BP 141/78
[2021-02-14] MEDS: KEPPRA 500 MG in IV NS 100 ML IV SCH ×2 (03:07→19:12)
[2021-02-14 04:00] VITALS: BP 141/78
--- NOTE | 2021-02-14 04:45 | NUR ---
RN NOTES RELAYED APTT TO [facility], TALKED PHARMACIST RONALD AND GAVE ORDER TO GIVE HEPARIN 3600 UNITS BOLUS AND START HEPARIN DRIP TO 1050 UNITS/KG/HR. WILL CONTINUE TO MONITOR.
[2021-02-14] MEDS ORDERED: HEPARIN SODIUM, PORCINE 5000 UNITS/1 ML VIAL IV ONE ×3 (05:00→22:00)
[2021-02-14] MEDS: CLONIDINE HCL 0.1 MG TABLET PO SCH ×3 (05:00→21:00)
[2021-02-14] MEDS: VALPROATE 250 MG in IV D5W 100 ML IV SCH ×4 (05:23→21:49)
[2021-02-14] MEDS: PHENYTOIN SODIUM IV 100 MG/2ML VIAL IV SCH ×3 (05:33→21:00)
--- NOTE | 2021-02-14 06:59 | NUR ---
RN NOTES PATIENT A/O X1 STILL ON BILATERAL SOFT RESTRAINTS. PATIENT IS WITH ONGOING HEPARIN DRIP @ 10.5 ML/HR. WITH REPEAT APTT @ 11AM LATEST APTT IS 3.5. ALL DUE MEDS GIVEN ORDERED. HOB ELEVATED. CALL LIGHT WITHIN REACH. ALL NEEDS ATTENDED. FREQUENT VISUAL MONITORING RENDERED. ENDORSED
--- NOTE | 2021-02-14 07:30 | NUR ---
RN MORNING NOTE PT RECEIVED IN BED. PT IS 2L NC SAT 95%. PT HAS AMS AND IS NON VERBAL. PT IS ON A HEPARIN DRIP @10.5 ML/HR WITH REPEAT APTT @1100. PT HAS L UA ACCESS AND CHEST WALL PERM CATH. PTS BS 120 PER SLIDING SCALE NO COVERAGE NEEDED AT THIS TIME. WILL CONTINUE TO MONITOR THIS SHIFT.
[2021-02-14] MEDS: BLOOD SUGAR DIAGNOSTIC 1 EACH STRIP IN SCH ×4 (07:43→22:13)
--- NOTE | 2021-02-14 07:43 | NUR ---
RN NOTES PO MED PT HAS AMS. WILL HOLD ALL PO MEDS
[2021-02-14] MEDS: CALCIUM ACETATE 667 MG CAP/TAB PO SCH ×3 (07:44→18:00)
[2021-02-14 08:00] VITALS: BP 143/72
[2021-02-14] MEDS: LOSARTAN POTASSIUM 50 MG TABLET PO SCH (08:08)
[2021-02-14] MEDS: MUPIROCIN OINT 2% 22 GM TUBE NS SCH ×2 (08:08→21:05)
[2021-02-14] MEDS: FOLIC ACID 1 MG TABLET PO SCH (08:12)
[2021-02-14] MEDS: HYDROCHLOROTHIAZIDE 25 MG TABLET PO SCH (08:13)
[2021-02-14] MEDS: CILOSTAZOL 100 MG TABLET PO SCH (08:16)
[2021-02-14] MEDS: VIT B CMPLX 3/FA/VIT C/BIOTIN 1 TAB TABLET PO SCH (08:16)
[2021-02-14] MEDS: CLOPIDOGREL BISULFATE 75 MG TABLET PO SCH (08:16)
[2021-02-14] MEDS: METOPROLOL TARTRATE 25 MG TABLET PO SCH ×2 (08:16→17:00)
[2021-02-14] MEDS: NIFEdipine XL (30MG) 30 MG TAB PO SCH (08:17)
[2021-02-14] MEDS: FAMOTIDINE/PF INJ 20 MG/2 ML VIAL IV SCH (09:05)
[2021-02-14 12:00] VITALS: BP 111/45
[2021-02-14] MEDS: INSULIN REGULAR, HUMAN 100 UNIT/ML 3 ML VIAL SQ PRN ×2 (12:55→18:55)
--- NOTE | 2021-02-14 12:55 | NUR ---
RN NOTES ACCUCHECK PT BS 127. PER SLIDING SCALE, NO COVERAGE NEEDED AT THIS TIME.
[2021-02-14 12:58] LABS: BASOPHILS # (AUTO) 0.1 K/uL (0.0-0.2); BASOPHILS % (AUTO) 0.3 % (0.0-2.0); LYMPHOCYTES # (AUTO) 0.5 K/uL (0.8-4.8); LYMPHOCYTES % (AUTO) 1.7 % (20.0-44.0); MEAN CORPUSCULAR HGB CONC 33 g/dl (31.0-36.0); MEAN CORPUSCULAR VOLUME 110 fL (82-100); MONOCYTES # (AUTO) 0.8 K/uL (0.1-1.30); MONOCYTES % (AUTO) 2.7 % (2.0-12.0); NEUTROPHILS # (AUTO) 26.5 K/uL (1.8-8.9); NEUTROPHILS % (AUTO) 95.3 % (43.0-81.0); PLATELET COUNT (AUTO) 146 K/uL (150-450); WHITE BLOOD COUNT (AUTO) 27.8 K/uL (4.3-11.0)
[2021-02-14 13:08] LABS: CALCIUM, SERUM 8.7 mg/dL (8.5-10.1); CARBON DIOXIDE 17 mmol/L (21-32); CHLORIDE 90 mmol/L (98-107); GLUCOSE 145 mg/dL (74-106); POTASSIUM 5.5 mmol/L (3.5-5.1); SODIUM SERUM 126 mmol/L (136-145); UREA NITROGEN, BLOOD 66 mg/dL (7-18)
[2021-02-14 13:11] LABS: CREATININE 9.1 mg/dL (0.6-1.3)
[2021-02-14 13:17] LABS: RED BLOOD CELL COUNT(AUTO) 1.85 MIL/uL (4.0-5.2)
[2021-02-14 13:18] LABS: HEMOGLOBIN 6.6 g/dL (11.5-14.8)
[2021-02-14 13:19] LABS: HEMATOCRIT 20 % (33-45)
[2021-02-14 13:36] LABS: LYMPHOCYTES % (MANUAL) 1 % (16-48); MONOCYTES % (MANUAL) 6 % (0-11.0); NEUTROPHILS % (MANUAL) 93 (42-76)
--- NOTE | 2021-02-14 14:00 | NUR ---
PTT 41.2 bolus given 2200 units one time dose and increase 100 units/hr now heparin drip is 1150 units/hr
--- NOTE | 2021-02-14 14:04 | NUR ---
HGB 6.6 HCT 20 notified and orders given will give 1 units PRBC today
--- NOTE | 2021-02-14 15:09 | NUR ---
RN NOTE CRITICAL LAB RECEIVED NOTIFICATION FROM LAB LACTIC ACID 3.8
[2021-02-14 16:00] VITALS: BP 102/58
--- NOTE | 2021-02-14 16:00 | NUR ---
RN NOTE MEDICATIONS PO MEDS NOT GIVEN DUE TO AMS. ALSO, MORNING DOSE OF DEPACON NOT GIVEN AND NOW BEING GIVEN AT 1600.
--- NOTE | 2021-02-14 16:54 | NUR ---
RN NOTE CONSENT CONSENT GIVEN BY FAMILY MEMBER: SURI LOYA. 2 RN VERIFICATION, REMEDIOS.
--- NOTE | 2021-02-14 17:33 | NUR ---
RN NOTES MEDICATION PT AMS UNABLE TO TAKE PO MEDS
[2021-02-14] MEDS: CEFTRIAXONE 1 G in IV D5W 50 ML IV SCH (17:35)
[2021-02-14] MEDS: IV 10% DEXTROSE 1,000 ML IV PRN (17:49)
[2021-02-14] MEDS: DEXTROSE 50%-WATER 50 ML DISP.SYRIN IV PRN (17:49)
--- NOTE | 2021-02-14 17:49 | NUR ---
RN NOTE D50 PT BS: 53. ADMINISTERED D50. WILL REASSESS.
--- NOTE | 2021-02-14 18:19 | NUR ---
RN NOTE D50 REASSESS REASSESSED PTS BS: 76. NO FURTHER ACTION NEEDED AT THIS TIME.
--- NOTE | 2021-02-14 18:56 | NUR ---
RN NOTES ACCUCHECK PT BS: 76. PER SLIDING SCALE NO COVERAGE NEEDED.
[2021-02-14] MEDS: VANCOMYCIN 500 MG in IV D5W 100 ML IV PRN (19:03)
[2021-02-14 20:00] VITALS: BP 110/50
--- NOTE | 2021-02-14 21:04 | NUR ---
RN MED NOTE PREVIOUS DILANTIN GIVEN LATE. HELD 2100 DOSE OF DILANTIN.
[2021-02-14] MEDS: ATORVASTATIN 40 MG TABLET PO SCH (22:00)
--- NOTE | 2021-02-14 22:13 | NUR ---
RN NOTE MEDICATION PREVIOUS DOSE OF DEPACON GIVEN LATE DUE TO NO ACCESS. ALSO, ALL PO MEDS HELD DUE TO AMS.
--- NOTE | 2021-02-14 22:22 | NUR ---
RN NOTE ACCRIKI PT BS: 61. PER SLIDING SCALE, NO COVERAGE NEEDED AT THIS TIME.
[2021-02-15] VITALS (12 sets, daily range): BP systolic 90–130; BP diastolic 50–77
--- NOTE | 2021-02-15 00:26 | NUR ---
RN NOTE LAST PT BS: 72.
--- NOTE | 2021-02-15 00:33 | NUR ---
RN NOTES patient has 2 midlines, with IVF D10 on one and heparin drip on the other. For blood transfusion; BS was 61 at HS need to stop D10 while transfusing blood; asked Primary RN to recheck BS prior to stopping IVF. With heparin drip; per rig supervisor, will hold for an hour from start of blood transfusion and if no reaction from the blood transfusion; will resume heparin drip. Primary RN Kvng made aware.
--- NOTE | 2021-02-15 00:50 | NUR ---
RN NOTE TRANSFUSION STARTED 1 UNIT PRBC UNIT ORDERED BEGIN TRANSFUSION. INITIAL VS WNL TAKEN AND RECORDED. WILL CONTINUE TO MONITOR FOR ANY BLOOD TRANSFUSION REACTION.
[2021-02-15] MEDS: VALPROATE 250 MG in IV D5W 100 ML IV SCH ×6 (04:00→21:01)
--- NOTE | 2021-02-15 04:00 | NUR ---
RN NOTE TRANSFUSION TRANSFUSION ENDED. NO REACTIONS TO PRBC. 308ML INFUSED.
[2021-02-15] MEDS: KEPPRA 500 MG in IV NS 100 ML IV SCH ×2 (04:46→15:40)
[2021-02-15 04:55] LABS: MONOCYTES # (AUTO) 0.5 K/uL (0.1-1.30); MONOCYTES % (AUTO) 2.4 % (2.0-12.0); RED BLOOD CELL COUNT(AUTO) 2.34 MIL/uL (4.0-5.2)
[2021-02-15] MEDS: CLONIDINE HCL 0.1 MG TABLET PO SCH ×3 (05:00→21:00)
[2021-02-15 05:01] LABS: HEMATOCRIT 24 % (33-45); HEMOGLOBIN 8.2 g/dL (11.5-14.8); LYMPHOCYTES # (AUTO) 0.4 K/uL (0.8-4.8); LYMPHOCYTES % (AUTO) 1.9 % (20.0-44.0); MEAN CORPUSCULAR HGB CONC 34 g/dl (31.0-36.0); MEAN CORPUSCULAR VOLUME 103 fL (82-100); NEUTROPHILS # (AUTO) 21.4 K/uL (1.8-8.9); NEUTROPHILS % (AUTO) 95.7 % (43.0-81.0); PLATELET COUNT (AUTO) 118 K/uL (150-450); WHITE BLOOD COUNT (AUTO) 22.4 K/uL (4.3-11.0)
[2021-02-15 05:10] LABS: CALCIUM, SERUM 7.7 mg/dL (8.5-10.1); CREATININE 5.9 mg/dL (0.6-1.3)
[2021-02-15] MEDS: PHENYTOIN SODIUM IV 100 MG/2ML VIAL IV SCH ×3 (05:12→20:56)
--- NOTE | 2021-02-15 05:45 | NUR ---
MANAGER STORE NOTE DEPACON BEYOND USE DATE 02/15/21 AT 0315. DID NOT ADMINISTER.
--- NOTE | 2021-02-15 07:30 | NUR ---
RN OPENING NOTES Patient received in bed and moves to deep pain. Patient is on room air. Right upper arm and left upper arm midline noted running iv fluids at 75 cc/.hour and heparin drip at 1250 units/hour. No grimacing or moaning noted. Patient is non verbal. Will continue to monitor. Bed is in lowest and locked position.
[2021-02-15] MEDS: CALCIUM ACETATE 667 MG CAP/TAB PO SCH ×3 (08:00→16:31)
[2021-02-15] MEDS: BLOOD SUGAR DIAGNOSTIC 1 EACH STRIP IN SCH ×4 (08:00→21:20)
--- NOTE | 2021-02-15 08:00 | NUR ---
bs checked 89 mg/dl
[2021-02-15] MEDS: MUPIROCIN OINT 2% 22 GM TUBE NS SCH ×2 (08:45→21:01)
[2021-02-15] MEDS: FAMOTIDINE/PF INJ 20 MG/2 ML VIAL IV SCH (08:45)
[2021-02-15] MEDS: LOSARTAN POTASSIUM 50 MG TABLET PO SCH (08:45)
[2021-02-15] MEDS: HYDROCHLOROTHIAZIDE 25 MG TABLET PO SCH (08:46)
[2021-02-15] MEDS: VIT B CMPLX 3/FA/VIT C/BIOTIN 1 TAB TABLET PO SCH (08:46)
[2021-02-15] MEDS: FOLIC ACID 1 MG TABLET PO SCH (08:46)
[2021-02-15] MEDS: METOPROLOL TARTRATE 25 MG TABLET PO SCH ×2 (08:46→16:31)
[2021-02-15] MEDS: NIFEdipine XL (30MG) 30 MG TAB PO SCH (08:47)
[2021-02-15] MEDS: CILOSTAZOL 100 MG TABLET PO SCH (08:47)
[2021-02-15] MEDS: CLOPIDOGREL BISULFATE 75 MG TABLET PO SCH (08:47)
[2021-02-15 09:19] LABS: LYMPHOCYTES % (MANUAL) 3 % (16-48); MONOCYTES % (MANUAL) 6 % (0-11.0); NEUTROPHILS % (MANUAL) 91 (42-76)
--- NOTE | 2021-02-15 10:00 | NUR ---
MD HAMM MADE AWARE REGARDING PATIENT'S PO MEDS AND PER MD TO HOLD OFF ON OG/NG TUBE INSERTION AND AWARE OF PATIENT NOT TAKING THE TABLET FORMS OF MEDICATION. MD AWARE OF PATIENT'S MORNING BP OF 93/45. PER MD TO CONTINUE TO MONITOR AND TO UPDATE NEEDED. NO NEW ORDERS. MD SPOKE TO SON BRANDO FOR CODE STATUS AND PER FAMILY, THEY WILL MAKE A DECISION AND LET STAFF AND MD KNOW.
[2021-02-15] MEDS: CEFTRIAXONE 1 G in IV D5W 50 ML IV SCH (10:24)
[2021-02-15] MEDS: Sodium Chloride 154 MEQ in IV 10% DEXTROSE 1,000 ML IV SCH (11:24)
--- NOTE | 2021-02-15 12:30 | NUR ---
bs checked, 113 mg/dl
--- NOTE | 2021-02-15 13:00 | NUR ---
CURRENT BP 113/57.
[2021-02-15] MEDS: INSULIN REGULAR, HUMAN 100 UNIT/ML 3 ML VIAL SQ PRN ×2 (17:54→21:22)
[2021-02-15] MEDS: HEPARIN INFUSION/D5W 500 ML IV PRN (18:02)
--- NOTE | 2021-02-15 18:46 | NUR ---
RN CLOSING NOTES Patient in bed and moves to deep and light pain. Patient is 2 liters 02 via n/c.. Right upper arm and left upper arm midline noted running iv fluids at 75 cc/.hour and heparin drip at 1250 units/hour. No grimacing or moaning noted. Patient is non verbal. Will continue to monitor. Bed is in lowest and locked position.Per MD DIAZ , to hold heparin drip at 730 am on 02/16/21 for reinsertion of hd cath. Nursing supervisor concrete pipe plant aware. Will endorse to next shift. Current BP 126/77 in left radial artery.Bed is in lowest and locked position. Patient turned and repositioned q2h and prn.Will endorse to next shift.
--- NOTE | 2021-02-15 19:30 | NUR ---
RN OPENING NOTES RECEIVED PATIENT IN BED SLEEPING ON BED, RESPIRATORY EVEN AND UNLABORED, NO SOB NOTED AT THIS TIME. NOTED WITH IDA MIDLIME, PATENT AND FLUSHING WELL, NO S/S OF INFECTION OR INFILTRATION WITH IV FLUID RUNNING @ 75CC/HR AND HEPARIN DRIP @ 1250UNITS /HR. SAFETY MEASURES IMPLEMENTED. PATIENT BED ALARM IS ON. HEAD OF BED ELEVATED. BED IS LOCKED, IN LOWEST POSITION AND SIDE RAILS UP. CALL LIGHT WITHIN REACH OF THE PATIENT. WILL CONTINUE TO MONITOR AND REASSESS FOR ANY CHANGES.
[2021-02-15] MEDS: ATORVASTATIN 40 MG TABLET PO SCH (21:23)
[2021-02-16] VITALS: BP 124/47
[2021-02-16] MEDS: Sodium Chloride 154 MEQ in IV 10% DEXTROSE 1,000 ML IV SCH ×2 (01:03→15:36)
[2021-02-16] MEDS: KEPPRA 500 MG in IV NS 100 ML IV SCH ×2 (02:50→14:08)
[2021-02-16 04:00] VITALS: BP 116/46
[2021-02-16] MEDS: VALPROATE 250 MG in IV D5W 100 ML IV SCH ×3 (04:31→21:08)
[2021-02-16] MEDS: PHENYTOIN SODIUM IV 100 MG/2ML VIAL IV SCH ×3 (04:31→21:09)
[2021-02-16] MEDS: CLONIDINE HCL 0.1 MG TABLET PO SCH ×3 (05:00→21:00)
--- NOTE | 2021-02-16 06:25 | NUR ---
RN CLOSING NOTES PATIENT IN BED SLEEPING, RESPIRATORY EVEN AND UNLABORED, NO SOB NOTED AT THIS TIME. NOTED WITH IDA MIDLIME, PATENT AND FLUSHING WELL, NO S/S OF INFECTION OR INFILTRATION WITH IV FLUID RUNNING @ 75CC/HR AND HEPARIN DRIP @ 1250UNITS /HR. KEPT CLEAN AND DRY. ALL NEEDS ATTENDED. SAFETY MEASURES IMPLEMENTED. PATIENT BED ALARM IS ON. HEAD OF BED ELEVATED. BED IS LOCKED, IN LOWEST POSITION AND SIDE RAILS UP. CALL LIGHT WITHIN REACH. ENDORESWD TO NEXT SHIFT
[2021-02-16 06:42] LABS: CALCIUM, SERUM 7.7 mg/dL (8.5-10.1); CREATININE 6.8 mg/dL (0.6-1.3); POTASSIUM 4.2 mmol/L (3.5-5.1)
[2021-02-16 06:54] LABS: BASOPHILS # (AUTO) 0.1 K/uL (0.0-0.2); BASOPHILS % (AUTO) 0.2 % (0.0-2.0); HEMATOCRIT 25 % (33-45); HEMOGLOBIN 8.4 g/dL (11.5-14.8); LYMPHOCYTES # (AUTO) 0.6 K/uL (0.8-4.8); LYMPHOCYTES % (AUTO) 2.5 % (20.0-44.0); MEAN CORPUSCULAR HGB CONC 34 g/dl (31.0-36.0); MEAN CORPUSCULAR VOLUME 105 fL (82-100); MONOCYTES # (AUTO) 0.7 K/uL (0.1-1.30); MONOCYTES % (AUTO) 2.8 % (2.0-12.0); NEUTROPHILS # (AUTO) 21.7 K/uL (1.8-8.9); NEUTROPHILS % (AUTO) 94.5 % (43.0-81.0); PLATELET COUNT (AUTO) 106 K/uL (150-450); RED BLOOD CELL COUNT(AUTO) 2.39 MIL/uL (4.0-5.2)
--- NOTE | 2021-02-16 07:27 | NUR ---
[employer]AINABLE DES[employer] OPENING NOTE PATIENT IN BED SLEEPING, NO SOB NOTED AT THIS TIME PT ON 2L NC WITH OO2 SAT OF 99%. IV ACCESS IDA MIDLIME, PATENT AND FLUSHING WELL, NO S/S OF INFECTION OR INFILTRATION WITH IV FLUID RUNNING @ 75CC/HR. SAFETY MEASURES IMPLEMENTED PER PROTOCOL. PATIENT BED ALARM IS ON. HEAD OF BED ELEVATED. BED IS LOCKED, IN LOWEST POSITION AND SIDE RAILS UP. CALL LIGHT WITHIN REACH.
[2021-02-16] MEDS: BLOOD SUGAR DIAGNOSTIC 1 EACH STRIP IN SCH ×4 (07:56→21:31)
--- NOTE | 2021-02-16 07:56 | NUR ---
RN NOTE INSULIN COVERAGE HELD FOR BLOOD SUGAR OF 132 DUE TO NPO STATUS
[2021-02-16 08:00] VITALS: BP 109/48
[2021-02-16] MEDS: CALCIUM ACETATE 667 MG CAP/TAB PO SCH ×3 (08:00→17:10)
[2021-02-16] MEDS: LOSARTAN POTASSIUM 50 MG TABLET PO SCH (08:25)
[2021-02-16] MEDS: HYDROCHLOROTHIAZIDE 25 MG TABLET PO SCH (08:25)
[2021-02-16] MEDS: METOPROLOL TARTRATE 25 MG TABLET PO SCH ×2 (08:25→17:00)
[2021-02-16] MEDS: FOLIC ACID 1 MG TABLET PO SCH (08:25)
[2021-02-16] MEDS: VIT B CMPLX 3/FA/VIT C/BIOTIN 1 TAB TABLET PO SCH (08:26)
[2021-02-16] MEDS: CILOSTAZOL 100 MG TABLET PO SCH (08:27)
[2021-02-16] MEDS: NIFEdipine XL (30MG) 30 MG TAB PO SCH (08:27)
[2021-02-16] MEDS: CLOPIDOGREL BISULFATE 75 MG TABLET PO SCH (08:27)
[2021-02-16] MEDS ORDERED: HEPARIN SODIUM, PORCINE 1,000 UNIT/ML VIAL ONE (08:37)
[2021-02-16] MEDS ORDERED: LIDOCAINE HCL/PF 1% 30 ML SDV ONE (08:37)
[2021-02-16] MEDS: FAMOTIDINE/PF INJ 20 MG/2 ML VIAL IV SCH (08:37)
[2021-02-16] MEDS: MUPIROCIN OINT 2% 22 GM TUBE NS SCH ×2 (08:39→21:14)
[2021-02-16 09:54] LABS: BAND % (MANUAL) 8 % (0.0-5.0); LYMPHOCYTES % (MANUAL) 4 % (16-48); METAMYELOCYTES % 1 % (0-0); MONOCYTES % (MANUAL) 6 % (0-11.0); MYELOCYTES % 1 % (0-0); NEUTROPHILS % (MANUAL) 80 (42-76)
--- NOTE | 2021-02-16 10:14 | NUR ---
RN NOTE OKAY TO CONTINUE HEPARIN DRIP AT SAME RATE FOR PTT OF 45.[address] HAMM
[2021-02-16] MEDS: CEFTRIAXONE 1 G in IV D5W 50 ML IV SCH (11:07)
--- NOTE | 2021-02-16 11:14 | NUR ---
WOUND CARE CONSULT: PT FOLLOWED BY VASCULAR TEAM FOR LOWER EXTREMITIES. DEFER TO SURGICAL TEAM. GENERALIZED EDEMA NOTED WITH SWELLING OF ARMS. DISCUSSED SKIN PROTECTION WITH NURSING STAFF. WILL SEE PRN. PT IS ON [place] [employer] LOW AIRLOSS BED.
[2021-02-16] MEDS: DEXTROSE 50%-WATER 50 ML DISP.SYRIN IV PRN (11:57)
[2021-02-16 12:00] VITALS: BP 133/76
[2021-02-16 16:00] VITALS: BP 105/60
--- NOTE | 2021-02-16 18:48 | NUR ---
RN CLOSING NOTE PATIENT REMAINS IN ROOM IN NO SIGNS OF RESPIRATORY DISTRESS, PATIENT ON 2L OF 02 VIA NC TOLERATING WELL SATURATING @ 94% SP02. SAFETY MEASURES IMPLEMENTED, BED IN LOWEST POSITION, LOCKED, SIDE RAILS UP, CALL LIGHT WITHIN REACH. ALL NEEDS AND ORDERS ADDRESSED DURING THE SHIFT. IV ACCESS MAINTAINED INTACT, SECURED AND FLUSHING WELL. ALL DUE MEDS GIVEN ORDERED & SCHEDULED PATIENT TOLERATED WELL. PATIENT KEPT CLEAN AND COMFORTABLE WITHIN THE SHIFT. PATIENT ENDORSED TO FAST FOOD RESTAURANT MANAGER NURSE FOR ERIC.
--- NOTE | 2021-02-16 19:25 | NUR ---
RN NOTE RECEIVED PATIENT IN BED, OBTUNDED, RESPONDS TO LIGHT PAIN. BREATHING EVEN AND UNLABORED. NO APPARENT DISTRESS NOTED. ON OXYGEN 2L/MIN VIA NASAL CANNULA. TOLERATING WELL. HOB ELEVATED 30 DEGREES. NOTED WITH CARLOS AND IDA MIDLINE. PATENT. RIGHT UPPER ARM MIDLINE RUNNING 10% DESTROSE and LEFT UPPER ARM RUNNING HEPARIN AT 1250 U. NO INFILTRATION NOTED ON BOTH ACCESS. INTACT. NOTED WITH BILATERAL SOFT WRIST RESTRAINTS ON. 2 FINGER SPACE OBSERVED. PATIENT CALM AT THIS TIME. PATIENT CURRENTLY UNDERGOING DIALYSIS. DIALYSIS NURSE AT BEDSIDE. BED LOW, IN LOCKED POSITION. CALL LIGHT WITHIN REACH. Addendum: 02/16/21 at 2020 by GABRIEL BASILIO RN CORRECTION: PATIENT ON OXYGEN 4L/MIN VIA NASAL CANNULA. SATURATION OF 98 PERCENT. WILL CONTINUE TO MONITOR. Addendum: 02/16/21 at 2034 by GABRIEL BASILIO RN ADDENDUM: PATIENT ON TELE-MONITORING. SINUS TACHYCARDIA, 109 BPM AT THIS TIME.
[2021-02-16 20:00] VITALS: BP 114/58
[2021-02-16] MEDS: ATORVASTATIN 40 MG TABLET PO SCH (21:31)
--- NOTE | 2021-02-16 21:32 | NUR ---
RN NOTE PATIENT FINISHED DIALYSIS. PER DIALYSIS NURSE, REMOVED 1L FLUIDS. PATIENT VITALS WNL AT THIS TIME.
--- NOTE | 2021-02-16 21:33 | NUR ---
RN NOTE PATIENT NPO AT THIS TIME PER MD ORDER. PM PO MEDICATIONS NON-ADMINISTERED.
[2021-02-17] VITALS (10 sets, daily range): BP systolic 94–138; BP diastolic 40–86
[2021-02-17] MEDS: KEPPRA 500 MG in IV NS 100 ML IV SCH ×2 (02:35→14:01)
[2021-02-17] MEDS: VALPROATE 250 MG in IV D5W 100 ML IV SCH ×4 (03:32→21:29)
[2021-02-17] MEDS: CLONIDINE HCL 0.1 MG TABLET PO SCH ×3 (04:41→20:41)
[2021-02-17] MEDS: PHENYTOIN SODIUM IV 100 MG/2ML VIAL IV SCH ×3 (04:43→20:38)
[2021-02-17] MEDS: Sodium Chloride 154 MEQ in IV 10% DEXTROSE 1,000 ML IV SCH ×2 (04:43→17:27)
[2021-02-17 06:16] LABS: BASOPHILS % (AUTO) 0.1 % (0.0-2.0); HEMATOCRIT 25 % (33-45); HEMOGLOBIN 8.3 g/dL (11.5-14.8); LYMPHOCYTES # (AUTO) 0.4 K/uL (0.8-4.8); LYMPHOCYTES % (AUTO) 1.4 % (20.0-44.0); MEAN CORPUSCULAR HGB CONC 33 g/dl (31.0-36.0); MEAN CORPUSCULAR VOLUME 104 fL (82-100); MONOCYTES # (AUTO) 0.6 K/uL (0.1-1.30); MONOCYTES % (AUTO) 2.3 % (2.0-12.0); NEUTROPHILS % (AUTO) 96.2 % (43.0-81.0); PLATELET COUNT (AUTO) 92 K/uL (150-450)
--- NOTE | 2021-02-17 07:33 | NUR ---
RN NOTE PATIENT IS IN BED WITH HOB AT SEMI FOWLERS POSITION. PATIENT IS ON 4L NC WITH NO SIGNS OF LABORED BREATHING. PATIENT IS AOX1. IDA AND CARLOS MIDLINES ARE PATENT AND INTACT. BED IS LOCKED IN THE LOWEST POSITION, 3 GUARD RAILS RAISED, CALL FORD WITHIN REACH, AND ALL HOSPITAL SAFETY PRECAUTIONS ARE BEING FOLLOWED. WILL CONTINUE TO MONITOR THROUGHOUT SHIFT.
[2021-02-17 07:35] LABS: CREATININE 4.7 mg/dL (0.6-1.3); PHOSPHORUS 6.3 mg/dL (2.5-4.9); POTASSIUM 3.9 mmol/L (3.5-5.1)
[2021-02-17] MEDS: BLOOD SUGAR DIAGNOSTIC 1 EACH STRIP IN SCH ×4 (07:39→22:40)
[2021-02-17] MEDS: VIT B CMPLX 3/FA/VIT C/BIOTIN 1 TAB TABLET PO SCH (08:00)
[2021-02-17] MEDS: METOPROLOL TARTRATE 25 MG TABLET PO SCH ×2 (08:00→16:08)
[2021-02-17] MEDS: CALCIUM ACETATE 667 MG CAP/TAB PO SCH ×3 (08:00→17:06)
[2021-02-17] MEDS: FOLIC ACID 1 MG TABLET PO SCH (08:00)
[2021-02-17] MEDS: LOSARTAN POTASSIUM 50 MG TABLET PO SCH (08:00)
[2021-02-17] MEDS: HYDROCHLOROTHIAZIDE 25 MG TABLET PO SCH (08:00)
[2021-02-17] MEDS: NIFEdipine XL (30MG) 30 MG TAB PO SCH (08:01)
[2021-02-17] MEDS: CILOSTAZOL 100 MG TABLET PO SCH (08:01)
[2021-02-17] MEDS: CLOPIDOGREL BISULFATE 75 MG TABLET PO SCH (08:01)
[2021-02-17] MEDS: FAMOTIDINE/PF INJ 20 MG/2 ML VIAL IV SCH (08:03)
[2021-02-17] MEDS: MUPIROCIN OINT 2% 22 GM TUBE NS SCH ×2 (08:05→20:39)
[2021-02-17] MEDS: CEFTRIAXONE 1 G in IV D5W 50 ML IV SCH (11:02)
[2021-02-17 12:45] LABS: BAND % (MANUAL) 1 % (0.0-5.0); LYMPHOCYTES % (MANUAL) 3 % (16-48); MONOCYTES % (MANUAL) 3 % (0-11.0); NEUTROPHILS % (MANUAL) 93 (42-76)
[2021-02-17] MEDS: HEPARIN INFUSION/D5W 500 ML IV PRN (17:05)
--- NOTE | 2021-02-17 18:39 | NUR ---
RN NOTE PATIENT IS IN BED WITH HOB AT SEMI FOWLERS POSITION. PATIENT IS ON 4L NC WITH NO SIGNS OF LABORED BREATHING. PATIENT IS AOX1. IDA AND CARLOS MIDLINES ARE PATENT AND INTACT. BED IS LOCKED IN THE LOWEST POSITION, 3 GUARD RAILS RAISED, CALL FORD WITHIN REACH, AND ALL HOSPITAL SAFETY PRECAUTIONS ARE BEING FOLLOWED. ALL DUE IV MEDICATIONS GIVEN AND PATIENT REMAINED STABLE THROUGHOUT SHIFT. WILL ENDORSE TO FOOD MIXER ASSEMBLER RN.
--- NOTE | 2021-02-17 19:35 | NUR ---
RN OPENING NOTES: RECEIVED PATIENT IN BED ASLEEP BUT ALERT, ORIENTED X1, AND RESPONSIVE TO PAINFUL STIMULI. ON 4L/MIN VIA N/C. HOB 30 DEGREES. NO SOB NOTED. BREATHING EVEN AND UNLABORED. IV ACCESS ON IDA AND CARLOS MIDLINE INTACT AND PATENT. NO FACIAL GRIMACING NOTED. NO RESPIRATORY DISTRESS NOTED. ALL SAFETY PROTOCOL PROVIDED. BED IN LOW POSITION AND LOCKED. ALL SIDE RAILS UP TO PREVENT ASPIRATIONS. PLACE CALL LIGHT WITH IN REACH. WILL CONTINUE TO MONITOR Addendum: 02/17/21 at 2348 by ADEEL BEDOLLA RN WRONG CHART
--- NOTE | 2021-02-17 19:40 | NUR ---
RN OPENING NOTES: RECEIVED PATIENT IN BED ASLEEP BUT VERY SLOWLY AROUSABLE TO PAINFUL STIMULI. ON 4L/MIN VIA N/C. CARDIAC MONITORING SHOWS SINUS RHYTHM. HOB 30 DEGREES. NO SOB NOTED. BREATHING UNLABORED. IV ACCESS ON IDA AND CARLOS MIDLINE INTACT AND PATENT. NO FACIAL GRIMACING NOTED. NO RESPIRATORY DISTRESS NOTED. NO S/S OF HYPER/HYPOGLYCEMIA. ALL SAFETY MEASURES PROVIDED. BED IN LOW POSITION AND LOCKED. ALL SIDE RAILS UP. PLACE CALL LIGHT WITH IN REACH. WILL CONTINUE TO MONITOR
[2021-02-17] MEDS: ATORVASTATIN 40 MG TABLET PO SCH (21:29)
--- NOTE | 2021-02-17 22:13 | NUR ---
RN NOTES, NOTED PATIENT WITH LABORED BREATHING AND GROUTING BREATHING IN THE 30S, INFORMED LEI BATES WINDOWS APPLICATION PACKAGER AND PER HER TO CALL THE FAMILY AND VERIFY IF THEY WANT DNR/DNI SINCE HOSPICE EVAL IS CONSIDERED.
--- NOTE | 2021-02-17 22:15 | NUR ---
RN NOTES, VS AT THIS TIME, 105/82, 100% NRM AT 15LPM, 35 RR, 98.1, WILL CONT TO MONITOR.
--- NOTE | 2021-02-17 22:20 | NUR ---
RN NOTES, PATIENT PLACED ON NRM AT 15LPM, O2 100%, BP 138/86, 36 RR, AFEBRILE, WILL CONT TO MONITOR CLOSELY.
--- NOTE | 2021-02-17 22:20 | NUR ---
RN NOTES, YOMI MCCORD CALLED AT [phone].
--- NOTE | 2021-02-17 22:20 | NUR ---
RN NOTES, CALLED SON AT AND INFORMED HIM ABOUT MOM'S CONDITION, PER HIM HE WANT US TO DO EVERYTHING FOR HER MOM IN CASE OF AN EMERGENCY, CHEST COMPRESSIONS, INTUBATION AND EVERYTHING RELATED TO FULL CODE INTERVENTIONS, LEI AWARE AND ORDERED ABG AND CXR STAT, ORDER NOTED AND CARRIED OUT.
--- NOTE | 2021-02-17 22:38 | NUR ---
RN NOTES, NOTED CARLOS MIDLINE LEAKING, PATIENT WITH IDA MIDLINE IN PLACED TOO, VERY SWOLLEN, ORDER FOR CENTRAL LINE OBTAINED, HEPARIN INFUSING IN IDA MIDLINE AT 1250 UNITS APTT/PTT IN AM, NO CHANGE IN RATE TODAY, WILL CONTINUE TO MONITOR CLOSELY.
[2021-02-17 22:40] LABS: ABG BASE EXCESS -11.7 mmol/L; ABG PCO2 29.2 mmHg (35.0-45.0); ABG PH 7.285 (7.350-7.450); ABG PO2 178.7 mmHg (75.0-100.0); COHb 0.3 % (0.5-1.5); MetHb 0.5 % (0.0-1.5); O2Hb 98.3 % (94.0-97.0); SITE, ABG Right Radial; VENT MODE, BG 15LPM NRB
[2021-02-17] MEDS: INSULIN REGULAR, HUMAN 100 UNIT/ML 3 ML VIAL SQ PRN (22:40)
[2021-02-17] MEDS ORDERED: SODIUM BICARBONATE SYR 50 MEQ/50 ML DISP.SYRIN IV ONE (23:00)
--- NOTE | 2021-02-17 23:00 | NUR ---
RN NOTES, ABG RESULTS RELAYED TO LEI ROBOTICS TESTING TECHNICIAN AND SHE REPLIED WITH ORDER FOR BICARB AMPULE, ORDER NOTED AND CARRIED OUT.
--- NOTE | 2021-02-17 23:10 | NUR ---
RN NOTES, PATIENT PLACED ON SIMPLE MASK AT 10LLPM, OO2 100%, BP 119/70, 35 RR, AFEBRILE, WILL CONT TO MONITOR CLOSELY.
--- NOTE | 2021-02-17 23:10 | NUR ---
RN NOTES, CALLED PHARMACY, AWAITING FOR PHARMACY TO VERIFY ORDER FOR BICARB,
--- NOTE | 2021-02-17 23:40 | NUR ---
2340 LABORATORY SUPERVISOR KE AT BEDSIDE AND RE ASSESSED PATIENT, SHE ORDERED TO GIVE ANOTHER SODIUM BICARB 1 AMP IVP AND CHECK ABG 30 MINS AFTER BICARB ADMINISTRATION. ORDER NOTED RT NOTIFIED.
[2021-02-17] MEDS ORDERED: SODIUM BICARBONATE SYR 50 MEQ/50 ML DISP.SYRIN IV STA (23:46)
[2021-02-18] VITALS (42 sets, daily range): BP systolic 0–122; BP diastolic 21–88
[2021-02-18 00:52] LABS: ABG BASE EXCESS -11.8 mmol/L; ABG OXYGEN SATURATION 93.8 % (92.0-98.5); ABG PCO2 37.5 mmHg (35.0-45.0); ABG PO2 89.3 mmHg (75.0-100.0); AaDO2 297.3 mmHg; COHb 0.3 % (0.5-1.5); MetHb 0.2 % (0.0-1.5); O2Hb 93.3 % (94.0-97.0); SITE, ABG Right Radial; VENT MODE, BG 10L SIMPLE MASK
--- NOTE | 2021-02-18 01:28 | NUR ---
RN NOTES, ABG RESULTS RELATED TO LEI JANA TRAVEL REGISTERED NURSE ONCOLOGY AND SHE REPLIED WITH ORDERS TO TRANSFER PATIENT TO ICU AND START BIPAP, AFTER 1 HOUR ON BIPAP DO ABGS AGAIN, WILL ENDORSE TO ICU NURSE.
--- NOTE | 2021-02-18 01:30 | NUR ---
RN NOTES, VIRI RT SPOKE WITH LEI INDUSTRIAL SALES MANAGER RECOMMENDING EITHER INTUBATION OR BIPAP, PER LEI HOLD OFF ON INTUBATION AND TRANSFER PATIENT TO ICU AND PLACE PATIENT IN RESCUE BIPAP.
--- NOTE | 2021-02-18 01:40 | NUR ---
RN NOTES, PATIENT STILL BREATHING AT 32 RR/MIN, O2 100% AT 10ML AT SIMPLE MASK, BP 118/62, WILL CONTINUE TO MONITOR CLOSELY.
--- NOTE | 2021-02-18 01:50 | NUR ---
RN NOTES, PATIENT BEING TRANSFER TO ICU ROOM 261, PATIENT ON SIMPLE MASK 10LPM O2 100% WITH ALL ACLS PROTOCOL ATTACHED TO POWERHOUSE TENDER WITH HR 80-90S, HEPARIN INFUSING AT 1250 UNITS.
--- NOTE | 2021-02-18 02:00 | NUR ---
RT NOTE PATIENT TRANSFERRED TO ICU. RECOMMENDED POSSIBLE INTUBATION POST ABG RESULTS. PATIENT PLACED ON BIPAP PER MULTIMEDIA PROGRAMMER ORDERS. FOLLOW UP ABG IN 1 HOUR. BIPAP IS PLUGGED INTO RED OUTLET. ALARMS ARE SET AND AUDIBLE. EMERGENCY EQUIPMENT AT PATIENT BEDSIDE. WILL CONTINUE TO MONITOR PATIENT.
--- NOTE | 2021-02-18 02:08 | NUR ---
RN NOTES, PATIENT TRANSFER TO ICU ROOM 261, REPORT GIVEN TO CLAUDE RN AT BEDSIDE.
[2021-02-18] MEDS ORDERED: NOREPINEPHRINE 4 MG/4 ML AMPUL IV ONE (02:12)
--- NOTE | 2021-02-18 02:22 | NUR ---
PT ASYSTOLE ON MONITOR, NO PALPABLE PULSE NO SPONTANEOUS BREATHING NOTED, CODE BLUE CALLED CPR STARTED, REFER TO CODE BLUE SHEET
--- NOTE | 2021-02-18 02:25 | NUR ---
RT NOTE CODE BLUE INITIATED. PATIENT INTUBATED WITH ETT 7.5 24CM @ LIP LINE. COLOR CHANGE NOTED, EQUAL CHEST RISE NOTED AND BILATERAL BREATH SOUNDS NOTED. PLACED PATIENT ON SETTINGS OF AC24 VT450 FIO2 100% PEEP+0. PATIENT SUCTIONED FOR TRACE, THIN, CLEAR SECRETIONS. PATIENT TOLERATING ORDERED SETTINGS. ABG FOLLOW UP IN 1 HOUR. ALARMS ARE SET AND AUDIBLE. MECHANICAL VENT IS PLUGGED INTO RED OUTLET. EMERGENCY EQUIPMENT AT PATIENT BEDSIDE. WILL CONTINUE TO MONITOR. Addendum: 02/18/21 at 0301 by MILES CHOWDHURY RT Amended: Links added.
[2021-02-18] MEDS ORDERED: NOREPINEPHRINE 32 MG in IV NS 0.9% 218 ML IV PRN (02:30)
--- NOTE | 2021-02-18 02:30 | NUR ---
PT ON ROSC, LEVOPHED RUNNING @ 1 MCG/KG/MIN SECOND PRESSOR MADE ORDER BY THE HOSPITALIST RIGOBERTO BATES WELFARE INTERVIEWER TO TITRATE PER PROTOCOL
[2021-02-18] MEDS ORDERED: SODIUM BICARBONATE SYR 50 MEQ/50 ML DISP.SYRIN ONE (02:38)
[2021-02-18] MEDS ORDERED: PHENYLEPHRINE 10 MG/ML VIAL ONE (02:39)
[2021-02-18] MEDS ORDERED: Sodium Bicarbonate 100 MEQ in IV D5W 1,000 ML IV PRN (03:00)
[2021-02-18] MEDS ORDERED: PHENYLEPHRINE 100 MG in IV NS 0.9% 240 ML IV PRN (03:00)
--- NOTE | 2021-02-18 03:02 | NUR ---
CALLED PT YOMI MCCORD BUT NO ANSWER LEAVE MSG VIA VOICEMAIL
--- NOTE | 2021-02-18 03:05 | NUR ---
RECEIVED CALL FROM PT DAUGHTER NEERU, INFORMED HER ABOUT THE SITUATION OF HER MOTHER AND TOLD HER ABOUT THE CURRENT CONDITION OF HER MOTHER PT DAUGHTER STILL WANT TO CONT FULL CODE TO THE PT, SHE SAID TO DO EVERYTHING TO HER MOTHER, HOSPITALIST MADE AWARE AND CHARGE NURSE
--- NOTE | 2021-02-18 03:15 | NUR ---
PT IS ON MAX BRIANNA AND LEVOPHED BUT BP IS STILL LOW CALLED HOSPITALIST LEI BATES FORENSIC DNA ANALYST WITH ORDER TO START PT ON VASOPRESSIN TO TITRATE PER PROTOCOL NOTED AND CARRIED OUT
[2021-02-18] MEDS ORDERED: VASOPRESSIN INJ 40 UNIT in IV NS 0.9% 38 ML IV PRN (03:30)
[2021-02-18] MEDS: KEPPRA 500 MG in IV NS 100 ML IV SCH (03:32)
[2021-02-18] MEDS ORDERED: VASOPRESSIN INJ 20 UNIT/ML VIAL ONE (03:36)
--- NOTE | 2021-02-18 03:46 | NUR ---
[employer] LEI BATES WAITER/WAITRESS INFORMAL JUST HOLD THE HEPARIN DRIP FOR NOW NOTED AND CARRIED OUT
[2021-02-18 04:37] LABS: ABG BASE EXCESS -16.1 mmol/L; ABG PCO2 37.5 mmHg (35.0-45.0); ABG PH 7.126 (7.350-7.450); ABG PO2 80.4 mmHg (75.0-100.0); COHb 0.3 % (0.5-1.5); MetHb 0.4 % (0.0-1.5); O2Hb 90.3 % (94.0-97.0); PEEP,BG 0 cm H2O; SITE, ABG Right Radial; VENT MODE, BG AC24 VT450 100% PEEP+0; VT, ABG 450 mL
[2021-02-18] MEDS: CLONIDINE HCL 0.1 MG TABLET PO SCH (05:00)
[2021-02-18] MEDS: VALPROATE 250 MG in IV D5W 100 ML IV SCH ×2 (05:02→09:20)
[2021-02-18 06:02] LABS: BASOPHILS # (AUTO) 0.1 K/uL (0.0-0.2); BASOPHILS % (AUTO) 0.5 % (0.0-2.0); HEMATOCRIT 26 % (33-45); HEMOGLOBIN 8.5 g/dL (11.5-14.8); LYMPHOCYTES # (AUTO) 0.7 K/uL (0.8-4.8); LYMPHOCYTES % (AUTO) 5.9 % (20.0-44.0); MEAN CORPUSCULAR HGB CONC 33 g/dl (31.0-36.0); MEAN CORPUSCULAR VOLUME 108 fL (82-100); MONOCYTES # (AUTO) 0.2 K/uL (0.1-1.30); MONOCYTES % (AUTO) 1.6 % (2.0-12.0); NEUTROPHILS # (AUTO) 10.1 K/uL (1.8-8.9); PLATELET COUNT (AUTO) 81 K/uL (150-450); RED BLOOD CELL COUNT(AUTO) 2.39 MIL/uL (4.0-5.2)
[2021-02-18 06:05] LABS: ABG BASE EXCESS -16.6 mmol/L; ABG PCO2 32.7 mmHg (35.0-45.0); ABG PH 7.147 (7.350-7.450); ABG PO2 72.9 mmHg (75.0-100.0); COHb 0.2 % (0.5-1.5); MetHb 0.5 % (0.0-1.5); O2Hb 88.4 % (94.0-97.0); PEEP,BG 0 cm H2O; SITE, ABG Right Radial; VENT MODE, BG AC28 VT450 100% +0; VT, ABG 450 mL
[2021-02-18 06:10] LABS: CREATININE 5.8 mg/dL (0.6-1.3); MAGNESIUM 2.2 mg/dL (1.8-2.4); POTASSIUM 4.2 mmol/L (3.5-5.1)
--- NOTE | 2021-02-18 06:28 | NUR ---
RT NOTE ABG RESULTS REPORTED TO RN. PENDING FURTHER ORDERS.
--- NOTE | 2021-02-18 06:41 | NUR ---
REPORTED TO HOSPITALIST LEI BATES THE LATEST ABG WITH ORDER TO GIVE 1 AMP NaHCO3 IVP NOTED AND CARRIED OUT
[2021-02-18] MEDS: PHENYTOIN SODIUM IV 100 MG/2ML VIAL IV SCH (06:52)
[2021-02-18] MEDS ORDERED: SODIUM BICARBONATE SYR 50 MEQ/50 ML DISP.SYRIN IV ONE ×2 (07:00→10:05)
--- NOTE | 2021-02-18 07:30 | NUR ---
ICU/RN PT IS INTUBATED ON THE VENT AC MODE,FIO2-100%,SAT O2-97%.S/P CODE BLUE LAST NIGHT.NOT SEDATED.COMATOSE.ON LEVOPHED DRIP AND NEOSYNEPHRINE DRIP,ON BICARB DRIP ORDERED.RIGHT UPPER ARM MIDLINE.LEFT CHEST HD CATH.ANURIC.ON HD.GENERALIZED EDEMA PRESENT.MULTIPLY BRUISES AND SKIN TEARS NOTED ALL OVER THE BODY.PT HAS PVD NO PULSES ON BLE.HAS GANGRENE ON BILATERAL FEET.SUCTION PROVIDED.BLOODY SECRETION NOTED.LABS REVIEW.MD AWARE.CONTINUE MONITORING.
[2021-02-18] MEDS: DEXTROSE 50%-WATER 50 ML DISP.SYRIN IV PRN (07:57)
[2021-02-18] MEDS: BLOOD SUGAR DIAGNOSTIC 1 EACH STRIP IN SCH ×2 (07:57→11:35)
[2021-02-18] MEDS: CALCIUM ACETATE 667 MG CAP/TAB PO SCH (08:00)
--- NOTE | 2021-02-18 08:00 | NUR ---
ICU/RN BS-33.D 50%. IV GIVEN ORDERED.
[2021-02-18] MEDS: FAMOTIDINE/PF INJ 20 MG/2 ML VIAL IV SCH (08:12)
[2021-02-18] MEDS: HYDROCHLOROTHIAZIDE 25 MG TABLET PO SCH (08:13)
[2021-02-18] MEDS: LOSARTAN POTASSIUM 50 MG TABLET PO SCH (08:13)
[2021-02-18] MEDS: METOPROLOL TARTRATE 25 MG TABLET PO SCH (08:13)
[2021-02-18] MEDS: FOLIC ACID 1 MG TABLET PO SCH (08:13)
[2021-02-18] MEDS: VIT B CMPLX 3/FA/VIT C/BIOTIN 1 TAB TABLET PO SCH (08:14)
[2021-02-18] MEDS: CILOSTAZOL 100 MG TABLET PO SCH (08:14)
[2021-02-18] MEDS: CLOPIDOGREL BISULFATE 75 MG TABLET PO SCH (08:14)
[2021-02-18] MEDS: NIFEdipine XL (30MG) 30 MG TAB PO SCH (08:14)
[2021-02-18] MEDS: MUPIROCIN OINT 2% 22 GM TUBE NS SCH (08:15)
--- NOTE | 2021-02-18 08:30 | NUR ---
ICU/RN BP DECREASED.VASOPRESSIN IV STARTED ORDERED
[2021-02-18 09:25] LABS: BAND % (MANUAL) 15 % (0.0-5.0); LYMPHOCYTES % (MANUAL) 4 % (16-48); METAMYELOCYTES % 1 % (0-0); MONOCYTES % (MANUAL) 6 % (0-11.0); MYELOCYTES % 6 % (0-0); NEUTROPHILS % (MANUAL) 68 (42-76)
[2021-02-18] MEDS ORDERED: CALCIUM CHLORIDE 1,000 MG/10 ML DISP.SYRIN IV ONE (10:06)
[2021-02-18] MEDS ORDERED: EPINEPHRINE (1:10,000) SYRINGE 1 MG/10 ML DISP.SYRIN IVP ONE (10:06)
[2021-02-18] MEDS ORDERED: Sodium Bicarbonate 150 MEQ in IV D5W 1,000 ML IV SCH (11:00)
--- NOTE | 2021-02-18 11:00 | NUR ---
PATIENT YOMI MCCORD (DPOA) AT BEDSIDE, SPOKE AT [facility] WITH LUIS WALTER REGARDING PATIENT CONDITION AND STATUS. FAMILY DECIDED TO PLACE HER ON DNR / DNI STATUS. DR. BARBOSA NOTIFIED. ORDER PLACED PER .
[2021-02-18] MEDS: CEFTRIAXONE 1 G in IV D5W 50 ML IV SCH (11:34)
--- NOTE | 2021-02-18 12:05 | NUR ---
DR. BARBOSA AT BEDSIDE. SPOKE TO FAMILY. AFTER LENGTHY DISCUSSION, FAMILY DECIDED FOR COMFORT MEASURES ONLY WITH TERMINAL EXTUBATION.
--- NOTE | 2021-02-18 12:28 | NUR ---
ASYSTOLE ON THE MONITOR. NO PALPABLE PULSES. NO HEART TONE. PUPILS FIXED AND DILATED. NO BP. ON THE VENTILATOR. ALL PRESSORS ONGOING. FAMILY AT BEDSIDE. DNR/DNI. COMFORT MEASURES ONLY NOT INITIATED. PRONOUNCED AT 1228.
[2021-02-18] MEDS ORDERED: MORPHINE SULFATE INJ 2 MG/ML DISP.SYRIN IV ONE (12:30)
[2021-02-18] MEDS ORDERED: MORPHINE SULFATE INJ 2 MG/ML DISP.SYRIN IV PRN ×2 (12:30)
[2021-02-18] MEDS ORDERED: LORAZEPAM INJ 2 MG/ML VIAL IV PRN (12:30)
--- NOTE | 2021-02-18 15:40 | NUR ---
ICU/RN BODY DISCHARGE TO MORTUARY.
== END 2021-02-18 12:28 | DRG 720 ==
LOC: ER 09:46 → TELE1 14:56 → TELE-TD 02-10 23:39 → TELE1 02-11 13:59 → TELE-TD 02-12 21:42 → TELE1 02-14 09:21 → TELE-TD 02-17 23:38 → ICU 02-18 01:49
PROVIDERS: ADMIT Internal Medicine; ATTEND Student in an Organized Health Care Education/Training Program
PROC: 05H633Z Insertion of Infusion Device into Left Subclavian Vein, Percutaneous Approach (ICD-10-PCS; 2021-02-09)
PROC: B547ZZA Ultrasonography of Left Subclavian Vein, Guidance (ICD-10-PCS; 2021-02-09)
PROC: 05H633Z Insertion of Infusion Device into Left Subclavian Vein, Percutaneous Approach (ICD-10-PCS; 2021-02-10)
PROC: B547ZZA Ultrasonography of Left Subclavian Vein, Guidance (ICD-10-PCS; 2021-02-10)
PROC: 5A1D70Z Performance of Urinary Filtration, Intermittent, Less than 6 Hours Per Day (ICD-10-PCS; 2021-02-10)
PROC: 05H533Z Insertion of Infusion Device into Right Subclavian Vein, Percutaneous Approach (ICD-10-PCS; 2021-02-14)
PROC: B546ZZA Ultrasonography of Right Subclavian Vein, Guidance (ICD-10-PCS; 2021-02-14)
PROC: 30233N1 Transfusion of Nonautologous Red Blood Cells into Peripheral Vein, Percutaneous Approach (ICD-10-PCS; 2021-02-15)
PROC: 5A1935Z Respiratory Ventilation, Less than 24 Consecutive Hours (ICD-10-PCS; principal; 2021-02-18)
PROC: 0BH18EZ Insertion of Endotracheal Airway into Trachea, Via Natural or Artificial Opening Endoscopic (ICD-10-PCS; 2021-02-18)
PROC: 5A12012 Performance of Cardiac Output, Single, Manual (ICD-10-PCS; 2021-02-18)
PROC: 5A09357 Assistance with Respiratory Ventilation, Less than 24 Consecutive Hours, Continuous Positive Airway Pressure (ICD-10-PCS; 2021-02-18)
DX: A41.9 Sepsis, unspecified organism (principal); J96.01 Acute respiratory failure with hypoxia; R65.21 Severe sepsis with septic shock; G92.8 Other toxic encephalopathy; E43 Unspecified severe protein-calorie malnutrition; D63.1 Anemia in chronic kidney disease; E83.51 Hypocalcemia; E83.9 Disorder of mineral metabolism, unspecified; E87.1 Hypo-osmolality and hyponatremia; I12.0 Hypertensive chronic kidney disease with stage 5 chronic kidney disease or end stage renal disease; E87.2 Acidosis; N18.6 End stage renal disease; E16.2 Hypoglycemia, unspecified; Z99.2 Dependence on renal dialysis; N25.81 Secondary hyperparathyroidism of renal origin; E78.5 Hyperlipidemia, unspecified; G40.909 Epilepsy, unspecified, not intractable, without status epilepticus; L30.9 Dermatitis, unspecified; Z51.5 Encounter for palliative care; F17.210 Nicotine dependence, cigarettes, uncomplicated; E87.5 Hyperkalemia; E88.09 Other disorders of plasma-protein metabolism, not elsewhere classified; I73.9 Peripheral vascular disease, unspecified; I25.10 Atherosclerotic heart disease of native coronary artery without angina pectoris; F32.9 Major depressive disorder, single episode, unspecified; Z68.20 Body mass index [BMI] 20.0-20.9, adult; T82.41XA Breakdown (mechanical) of vascular dialysis catheter, initial encounter; Y84.8 Other medical procedures as the cause of abnormal reaction of the patient, or of later complication, without mention of misadventure at the time of the procedure; Y92.129 Unspecified place in nursing home as the place of occurrence of the external cause; Z20.822 Contact with and (suspected) exposure to COVID-19; Z79.02 Long term (current) use of antithrombotics/antiplatelets; Z66 Do not resuscitate
CPT/HCPCS: 31720; 36410; 36415; 36600; 70450-TC; 71045-TC; 80048-TC; 80053-TC; 80076-TC; 80185-TC; 80202-TC; 82247-TC; 82248-TC; 82803-TC; 82947-TC; 82962-TC; 83540-TC; 83605-TC; 83735-TC; 84100-TC; 84484-TC; 85025-TC; 85730-TC; 86706; 86850-TC; 87040-TC; 87081-TC; 87340; 90935-TC; 92950-TC; 94002-TC; 94799-TC; A6403; G0378; J0171; J0360; J0696; J0885; J1165; J1200; J1644; J1815; J1953; J2060; J2370; J2997; J3370; J3490; J7030; J7050; J7060; J7070; P9016; U0003